=== PATIENT | male | born 1950 | race Caucasian/White ===

== ENCOUNTER → 2023-11-11 11:18 | Outpatient (BNVA) | payer MEDICARE, SELFPAY | PROVIDERS: Visit Provider Nurse Practitioner | DX: E11.9 Type 2 diabetes mellitus without complications (principal); E78.5 Hyperlipidemia, unspecified | CPT/HCPCS: 80053; 80061; 83036; 85025 ==

== ENCOUNTER → 2023-12-02 10:46 | Outpatient (BNVA) | payer OTHER, SELFPAY | PROVIDERS: PCP Nurse Practitioner; Visit Provider Nurse Practitioner | DX: M19.011 Primary osteoarthritis, right shoulder (principal) | CPT/HCPCS: 36415; 73030; 80053; 81001; 85025 ==

== ENCOUNTER → 2023-12-06 09:27 | Outpatient (BNVA) | payer OTHER, SELFPAY | PROVIDERS: PCP Nurse Practitioner; Visit Provider Family Medicine | DX: Z01.818 Encounter for other preprocedural examination (principal); R00.1 Bradycardia, unspecified | CPT/HCPCS: 93005 ==

== ENCOUNTER 2023-12-12 05:31 | Day surgery (SDC) | payer MEDICARE, SELFPAY ==
[2023-12-12] VITALS (9 sets, daily range): BP systolic 134–168; BP diastolic 63–91; PULSE 57–79; RESP 16–18; TEMP 36.2–36.4; O2SAT 91–99
[2023-12-12 06:15] LABS: Glucose Point of Care 143 mg/dL (70-110)
[2023-12-12] MEDS: sodium chloride 0.9% 1,000 ML 30 ML IV (06:30)
[2023-12-12] MEDS: acetaminophen 1,000 MG/100 ML PIGGYBACK 400 MG IV (06:32)
[2023-12-12] MEDS: gabapentin 300 mg Capsule PO (06:33)
[2023-12-12] MEDS: CELEcoxib 200 mg Capsule 400 MG PO (06:33)
--- NOTE | 2023-12-12 06:53 | P.ANESASSM_ITS ---
Pre-Anesthetic Assessment Height/Weight: Height 1.68 m Weight 83.915 kg Temp Pulse Resp BP Pulse Ox O2 Del Method 97.6 F 57 L 18 143/83 98 Room Air 12/12/23 05:58 12/12/23 05:58 12/12/23 05:58 12/12/23 05:58 12/12/23 05:58 12/12/23 05:58 Operation Date: 12/12/23 07:00 Proposed Procedures p Acromioplasty(Right) - Xenia Braun MD s Distal Clavicle Resection(Right) - Xenia Braun MD s Rotator Cuff Repair - Open(Right) - Xenia Braun MD Familial anesthetic complications: None Was Beta Brenden taken within 24 hours: N/A Was Clonidine taken within 24 hours: N/A Last intake: Intake Last Liquid Date 12/11/23 Last Liquid Time 22:00 Last Solid Date 12/11/23 Last Solid Time 22:00 Social No alcohol and No tobacco Exam alert, oriented x 3, clear to auscultation bilaterally and regular rate & rhythm Pulmonary Sleep Apnea CV/HEM Hypertension GI Gastroesophageal Reflux Disease Metabolic Diabetes Mellitus and Hyperlipidemia Anesthetic Plan ASA status: 3 Anesthesia: General and Regional (specify below) Risk of > 500 ml blood loss (7ml/kg in children): No Medications/Allergies Home Medications Medication Instructions Recorded Confirmed Last Taken Type calcium citrate 200 mg (950 mg) 200 mg PO DAILY 11/11/23 12/11/23 12/11/23 History tablet docosahexaenoic acid (dha)-epa 120 1 cap PO DAILY 11/11/23 12/11/23 12/11/23 History mg-180 mg capsule (Fish Oil) magnesium glycinate 100 mg PO QPM 11/11/23 12/11/23 12/10/23 History methylphenidate HCl 5 mg tablet 5 mg PO DAILY 11/11/23 12/11/23 12/11/23 History citalopram 10 mg tablet 10 mg PO DAILY #90 tabs 11/26/23 12/11/23 12/10/23 Rx lisinopril 5 mg tablet 5 mg PO DAILY #90 tabs 11/26/23 12/11/23 12/11/23 Rx metformin 1,000 mg tablet 1,000 mg PO BID #180 tabs 11/26/23 12/11/2324 Rx rosuvastatin 5 mg tablet 5 mg PO DAILY #90 tabs 11/26/23 12/11/23 12/10/23 Rx omeprazole 20 mg tablet,delayed 20 mg PO DAILY 12/06/23 12/12/23 12/12/23 Hist ory release Allergies Allergy/AdvReac Type Severity Reaction Status Date / Time Sulfa (Sulfonamide Allergy unknown Verified 12/06/23 09:54 Antibiotics) Current Medications Generic Name Dose Route Start Last Admin Trade Name Freq PRN Reason Stop Dose Admin Sodium Chloride 1,000 mls @ 30 mls/hr 12/12/23 06:00 12/12/23 06:30 Sodium Chloride 0.9% IV 12/13/23 05:59 30 mls/hr .Q24H MANAN Administration PFSH Anesthesia Medical History Rotator cuff tear, right Primary osteoarthritis, 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
--- NOTE | 2023-12-12 07:00 | P.HPUD_ITS ---
Surgery/Procedure H&P Update DATE OF PROCEDURE: December 12, 2023 DATE H&P PERFORMED: 12/06/23 H&P UPDATE INFORMATION: I have reviewed H&P completed within last 30 days, I have examined patient prior to procedure, No changes to prior documentation and H&P is in [facility] EMR on date indicated PLANNED PROCEDURE: Operation Date: 12/12/23 07:00 Proposed Procedures p Acromioplasty(Right) - Xenia Braun MD s Distal Clavicle Resection(Right) - Xenia Braun MD s Rotator Cuff Repair - Open(Right) - Xenia Braun MD Related Problem List Diagnoses (1) Rotator cuff tear, right: Qualifiers: Rotator cuff tear extent: complete Rotator cuff tear trauma status: tr aumatic Encounter type: initial encounter Qualified Code(s): S46.011A - Strain of muscle(s) and tendon(s) of the rotator cuff of right shoulder, initial encounter (2) Arthritis of right acromioclavicular joint: (3) Primary osteoarthritis, right shoulder:
--- NOTE | 2023-12-12 07:03 | W.PM.OPSUD ---
Surgery/Procedure H&P Update DATE OF PROCEDURE: December 12, 2023 DATE H&P PERFORMED: 12/06/23 PLANNED PROCEDURE: Operation Date: 12/12/23 07:00 Proposed Procedures p Acromioplasty(Right) - Xenia Braun MD s Distal Clavicle Resection(Right) - Xenia Braun MD s Rotator Cuff Repair - Open(Right) - Xenia Braun MD
[2023-12-12] MEDS: ceFAZolin 2,000 mg SDV 2000 MG IVP (07:08)
[2023-12-12] MEDS: ceFAZolin 1,000 mg SDV 1000 MG IRRIGATION (07:50)
--- NOTE | 2023-12-12 08:29 | PC.NURSE ---
pt was prepared for an interscaline block being performed by anesthesia. Pt was placed on 2L oxygen via nasal cannula, heart monitors and an oxygen sensor to monitor oxygen sats through the procedure. A time out was performed at 0645 by anesthesia identifying the patient by name and . The interscaline block was performed using 20cc 0.5% ropivicaine for patient pain control post surgery.
--- NOTE | 2023-12-12 09:13 | PM.OP ---
Operative Report Date of procedure: December 12, 2023 Pre-op diagnosis: Right shoulder impingement with large rotator cuff tear and acromioclavicular joint osteoarthritis Post-op diagnosis: Right shoulder large rotator cuff tear, biceps tendon atrophy, acromioclavicular joint osteoarthritis, and impingement Post-op findings: Near complete tear of the biceps tendon, large vertical rotator cuff tear with lack of humeral head coverage Procedure done: Right shoulder rotator cuff repair with biceps tenotomy and tenodesis, acromioplasty, and distal clavicle resection. Implants: None Specimens removed/disposition: Bone, disposed of Pathology: None sent Surgeon: Xenia Braun MD Agricultural Equipment Test Engineer: Trish Sheldon Agricultural Equipment Test Engineer: Who services were required for positioning, retraction, closure, and completion of the surgical procedure. Anesthesia: General (Intubated, ASA 3) Estimated blood loss (mL): 30 IV fluids (mL): 800 Urine output (mL): 0 (No Griffith) Complications: None Findings: Severe impingement with near complete tear of the biceps tendon and very large rotator cuff tear in a vertical fashion. Condition: stable Disposition: PACU (Then return to same-day surgery for discharge to home) Brief History: This 73-year-old gentleman presented with right shoulder pain. He describes that he had had shoulder pain for about a year, but also, he had an injury while he lived in [place] where he fell and landed on his right shoulder on concrete. The patient had performed physical therapy and had cortisone injections, but he was not having enough relief to continue with his activities of daily living. His date of injury was July 2023. After extended discussion, the patient wished to proceed with operative intervention. He understood preoperatively that the rotator cuff may not be repairable. He also understood that we would address the impingement as well as the acromioclavicular joint osteoarthritis. Risks and complications of surgery were discussed with him. Consents were signed and questions were answered. Procedure: The patient was brought to the operating theater and underwent general intubated, ASA 3 anesthesia. The patient was placed in a beachchair position and subsequently the right upper extremity was prepped and draped in the usual fashion utilizing DuraPrep. The arm was draped free. A surgical pause was performed prior to commencement of the surgical procedure. At the time of the surgical pause, we confirmed the site and side of surgery as well as administration of appropriate preoperative antibiotics Ancef 2 g. MRI was also reviewed at that time. Following the surgical pause, an incision was made at approximately the level of the distal clavicle extending across the anterolateral corner of the acromion and distally as necessary. Care was taken to avoid injury to the axillary nerve by limiting the distal extent of the incision. Dissection continued through skin and soft tissues using a scalpel. Hemostasis was obtained using electrocautery. Soft tissues were elevated off the acromion. An acromioplasty was then accomplished using a combination of a saw and a power rasp. With this, we were able to remove compression caused by the acromion. The rotator cuff was then evaluated to look for tears. There was full rotator cuff tear causing the entire superior humeral head to be uncovered. There was also significant thinning of the biceps tendon as it left the biceps groove and proceeded to the glenoid. There were only a few fibers of this tendon remaining. A biceps tenodesis was performed utilizing Ethibond to sew the biceps tendon in appropriate position in the biceps groove. The biceps tendon was then further evaluated, and after accomplishing the acromioplasty, we were able to see its attachment point onto the glenoid. Therefore, the tendon was resected at its point of attachment. This was flipped over onto the biceps groove and further suturing was accomplished incorporating the proximal portion of the tendon. The remaining portion that was not sutured in place was then removed. After the biceps tendon had been repaired with this form of biceps tenodesis, attention was directed further to the rotator cuff The rotator cuff tear was evaluated. The edges were freshened using a scalpel. The rotator cuff tear was quite large and vertical in position through the supraspinatus tendon. It was felt that this was not completely repairable, however, attempted repair was felt appropriate to allow coverage of the humeral head and perhaps lessen the patient's symptoms. This was a large vertical tear with separation anteriorly and posteriorly. Repair was accomplished using 0 Ethibond in an interrupted fashion. After the rotator cuff had been thus addressed, the shoulder was placed through further range of motion to assure there was no further evidence of rotator cuff tear. Finding none, shoulder was placed through range of motion as well to assess for impingement. It was felt that there was significant relief of impingement pressures across the shoulder joint. The acromioclavicular joint was exposed. A saw was then used to resect the distal clavicle without difficulty. The undersurface of the clavicle was palpated and was slightly further debrided. A power rasp was used to further smooth the area. When this was felt to be adequately resected, the wound was irrigated. Attention was then directed to closure. The wound was irrigated and closure was accomplished with 0 Vicryl in the capsular tissues overlying the acromioclavicular joint area as well as over the acromion and down into the deltoid muscle. 3-0 Monocryl was used to close the subcutaneous tissues followed by 4-0 Monocryl subcuticular closure. This was followed by Dermabond, Steri-Strips, and OpSite. The patient was placed in a slingshot style sling and was returned to the recovery room in satisfactory condition. The patient will be discharged to home to follow-up with me in the office as scheduled. There were no complications and no specimens. Related Problem List Diagnoses (1) Rotator cuff tear, right: (2) Arthritis of right acromioclavicular joint: (3) Impingement of right shoulder: (4) Primary osteoarthritis, right shoulder:
--- NOTE | 2023-12-12 10:05 | ANE.PACU2 ---
Inpatient post-anesthesia follow up: Airway intact: Yes Vital signs: Temperature 97.4 F Pulse Rate 71 Respiratory Rate 16 Blood Pressure 134/63 Pulse Oximetry 91 Oxygen Delivery Me thod Room Air Oxygen Flow Rate 6 Fraction of Inspir ed Oxygen Hydration adequate: Yes Nausea and vomiting: No Pain level: 1 Mental status: Baseline
== END 2023-12-12 10:05 | disposition home or self-care (01) ==
PROVIDERS: PCP Nurse Practitioner; Visit Provider Specialist
PROC: (CPT 23130; principal; 2023-12-12 07:00)
PROC: (CPT 23120; 2023-12-12 07:00)
PROC: (CPT 23120; 2023-12-12 07:00)
PROC: (CPT 23430; 2023-12-12 07:00)
DX: M75.101 Unspecified rotator cuff tear or rupture of right shoulder, not specified as traumatic (principal); M19.011 Primary osteoarthritis, right shoulder; M25.811 Other specified joint disorders, right shoulder; G47.30 Sleep apnea, unspecified; I10 Essential (primary) hypertension; E11.9 Type 2 diabetes mellitus without complications; E78.5 Hyperlipidemia, unspecified
CPT/HCPCS: 23120; 23412; 23430; 36416; 82962; J0131; J0330; J0690; J1100; J2405; J2704; J2795; J3010; J3490; J7030

== ENCOUNTER → 2023-12-25 07:57 | Outpatient (BNVA) | payer MEDICARE, SELFPAY | PROVIDERS: PCP Nurse Practitioner; Visit Provider Nurse Practitioner | DX: Z98.890 Other specified postprocedural states (principal); S46.011D Strain of muscle(s) and tendon(s) of the rotator cuff of right shoulder, subsequent encounter; M19.011 Primary osteoarthritis, right shoulder; X58.XXXD Exposure to other specified factors, subsequent encounter | CPT/HCPCS: 99024 ==

== ENCOUNTER → 2024-01-08 10:19 | Outpatient (BNVA) | payer MEDICARE, SELFPAY | PROVIDERS: PCP Nurse Practitioner; Visit Provider Nurse Practitioner | DX: Z98.890 Other specified postprocedural states (principal); M19.011 Primary osteoarthritis, right shoulder | CPT/HCPCS: 99024 ==

== ENCOUNTER → 2024-02-19 09:42 | Outpatient (BNVA) | payer MEDICARE, SELFPAY | PROVIDERS: PCP Nurse Practitioner; Visit Provider Nurse Practitioner | DX: M19.011 Primary osteoarthritis, right shoulder; S46.011D Strain of muscle(s) and tendon(s) of the rotator cuff of right shoulder, subsequent encounter; Z98.890 Other specified postprocedural states; X58.XXXD Exposure to other specified factors, subsequent encounter | CPT/HCPCS: 20610; 99024; J1100; J2795; J3301 ==

== ENCOUNTER → 2024-05-20 13:43 | Outpatient (BNVA) | payer MEDICARE, SELFPAY | PROVIDERS: PCP Nurse Practitioner; Visit Provider Nurse Practitioner | DX: M19.011 Primary osteoarthritis, right shoulder (principal); S46.011D Strain of muscle(s) and tendon(s) of the rotator cuff of right shoulder, subsequent encounter; Z98.890 Other specified postprocedural states; X58.XXXD Exposure to other specified factors, subsequent encounter | CPT/HCPCS: 20610; 99214; J1100; J2795; J3301; J9999 ==

== ENCOUNTER → 2024-06-16 14:03 | Outpatient (BNVA) | payer MEDICARE, SELFPAY | PROVIDERS: Family Provider Family Medicine; PCP Family Medicine; Referring Provider Family Medicine; Visit Provider Family Medicine | DX: E78.5 Hyperlipidemia, unspecified (principal); E11.9 Type 2 diabetes mellitus without complications; G47.419 Narcolepsy without cataplexy; I10 Essential (primary) hypertension | CPT/HCPCS: 80053; 80061; 83036; 85025 ==

== ENCOUNTER 2024-07-27 22:10 | Emergency (ER) | payer MEDICARE, SELFPAY ==
--- NOTE | 2024-07-27 22:18 | CTR_ITS ---
PROCEDURE INFORMATION: Exam: CT Head Without Contrast Exam date and time: 07/27/2024 10:27 PM Age: 73 years old Clinical indication: Stroke-like symptoms; Other: brain fog ; Additional info: Symptoms of acute stroke TECHNIQUE: Imaging protocol: Computed tomography of the head without contrast. Radiation optimization: All CT scans at this facility use at least one of these dose optimization techniques: automated exposure control; mA and/or kV adjustment per patient size (includes targeted exams where dose is matched to clinical indication); or iterative reconstruction. Other technique: STROKE PROTOCOL was implemented. COMPARISON: No relevant prior studies available. RADIATION DOSE METRICS: Total DLP (mGy-cm): 1074.3 FINDINGS: Brain: Periventricular white matter changes likely related to chronic ischemic small vessel disease. No intracranial mass, hemorrhage or recent infarct. Suspected old lacunar infarct in the left basal ganglia. Cerebral ventricles: No ventriculomegaly. Paranasal sinuses: Visualized sinuses are unremarkable. No fluid levels. Mastoid air cells: Visualized mastoid air cells are well aerated. Bones: Unremarkable. No acute fracture. Soft tissues: Unremarkable. CT/CT head thrombolytic [id number] IMPRESSION: No acute intracranial abnormality. ASSESSMENT: ASPECTS ([place] Stroke Program Early CT Score) is 10.
[2024-07-27 22:19] VITALS: BP 167/90; PULSE 106; RESP 18; TEMP 36.6; O2SAT 95
--- NOTE | 2024-07-27 22:19 | XRR_ITS ---
PROCEDURE INFORMATION: Exam: XR Chest Exam date and time: 07/27/2024 10:29 PM Age: 73 years old Clinical indication: Other: Weakness TECHNIQUE: Imaging protocol: Radiologic exam of the chest. Views: 1 view. COMPARISON: CR XR shoulder RT min 2V* [id number] 12/02/2023 10:50 AM FINDINGS: Lungs: Unremarkable. No consolidation. Pleural spaces: Unremarkable. No pleural effusion. No pneumothorax. Heart/Mediastinum: Unremarkable. No cardiomegaly. Bones/joints: Mild degenerative changes involve the spine. XR/XR chest 1V portable [id number] IMPRESSION: No acute abnormality.
[2024-07-27 22:22] LABS: Glucose Point of Care 215 mg/dL (70-110)
--- NOTE | 2024-07-27 22:23 | W.ED.AMS ---
HPI - Altered Mental Status General: Chief Complaint: Altered Mental Status Stated Complaint: Confused Time Seen by Provider: 07/27/24 22:15 History of Present Illness: 73-year-old male with a history of diabetes, hyperlipidemia and hypertension who presents the emergency room with neurologic complaints. He had gone outside and came back in and family noted him to be very confused and having amnesia. He kept asking the same questions over and over again. This is improved quite a bit now. He also now says that he fell when he got outside and hit his hip but did not hit his head. He is not on any blood thinners. His glucose was in the 200s at home which is a little high for him. Currently no focal motor deficits. He says he still feels a little bit confused but seems improved significantly according to family. Related Data Home Medications ?Medication ?Instructions ?Recorded ?Confirmed calcium citrate 200 mg PO DAILY 11/11/23 05/26/24 docosahexaenoic acid (dha)-epa 120 1 cap PO DAILY 11/11/23 05/26/24 mg-180 mg capsule (Fish Oil) magnesium glycinate 100 mg PO QPM 11/11/23 05/26/24 Previous Rx's ?Medication ?Instructions ?Recorded lisinopril 5 mg tablet 5 mg PO DAILY #90 tabs 11/26/23 metformin 1,000 mg tablet 1,000 mg PO BID #180 tabs 11/26/23 rosuvastatin 5 mg tablet 5 mg PO DAILY #90 tabs 11/26/23 azelastine 137 mcg (0.1 %) nasal 2 spray intranasal BID #30 mL 01/24/24 spray citalopram 20 mg tablet 20 mg PO DAILY 90 days #90 tabs 03/03/24 C-pap machine APAP 8-15 #1 ea 05/21/24 methylphenidate HCl 10 mg tablet 10 mg PO TID 30 days #90 tabs 07/16/24 Allergies Allergy/AdvReac Type Severity Reaction Status Date / Time Sulfa (Sulfonamide Allergy unknown Verified 07/27/24 22:22 Antibiotics) Review of Systems Narrative: Constitutional symptoms: Negative except as documented in HPI. Skin symptoms: Negative except as documented in HPI. Eye symptoms: Negative except as documented in HPI. ENMT symptoms: Negative except as documented in HPI. Respiratory symptoms: Negative except as documented in HPI. Cardiovascular symptoms: Negative except as documented in HPI. Gastrointestinal symptoms: Negative except as documented in HPI. Genitourinary symptoms: Negative except as documented in HPI. Musculoskeletal symptoms: Negative except as documented in HPI. Neurologic symptoms: Negative except as documented in HPI. Psychiatric symptoms: Negative except as documented in HPI. Endocrine symptoms: Negative except as documented in HPI. 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 Surgeon: Xenia Braun MD Family History Father Diabetes Sister Diabetes Mother Stroke Social History Smoking and tobacco/nicotine status: unknown if used tobacco/nicotine Physical Exam Narrative: General: Alert, no acute distress. Skin: Warm, dry. Head: Normocephalic, atraumatic. Neck: Supple, trachea midline. Eye: Extraocular movements are intact. Ears, nose, mouth and throat: mucosa moist. Cardiovascular: Regular, Normal peripheral perfusion. Respiratory: Lungs are clear to auscultation, respirations are non-labored, breath sounds are equal, Symmetrical chest wall expansion. Gastrointestinal: Soft, Nontender, Non distended Musculoskeletal: Normal ROM, no deformity. Neurological: Alert and oriented, No focal neurological deficit observed. No drift. No vision deficits. No slurred speech. No facial droop. Ambulating fine to the room. Psychiatric: Cooperative, appropriate mood & affect. Course Vital Signs: Vital signs: Vital Signs Temperature 97.8 F 07/27/24 22:19 Pulse Rate 106 H 07/27/24 22:19 Respiratory Rate 18 07/27/24 22:19 Blood Pressure 167/90 07/27/24 22:19 Pulse Oximetry 95 07/27/24 22:19 Oxygen Delivery Me thod Room Air 07/27/24 22:19 MDM - Altered Mental Status Medical Decision Making Medical decision making: Differential diagnosis for patient with focal neurologic deficit(s) includes but not limited to and based on the above HPI, review of systems and physical exam: ischemic stroke, hemorrhagic stroke and embolic stroke secondary to atrial fibrillation), TIA, Thomas's palsey, metabolic encephalopathy with previous stroke. Orders placed to evaluate differential diagnosis based on the above differential, HPI and physical exam NIH Stroke Scale/Score (NIHSS) from [employer] [facility] on 07/27/2024 All calculations should be rechecked by clinician prior to use RESULT SUMMARY: 0 points NIH Stroke Scale INPUTS: 1A: Level of consciousness ?> 0 = Alert; keenly responsive 1B: Ask month and age ?> 0 = Both questions right 1C: 'Blink eyes' & 'squeeze hands' ?> 0 = Performs both tasks 2: Horizontal extraocular movements ?> 0 = Normal 3: Visual riggs ?> 0 = No visual loss 4: Facial palsy ?> 0 = Normal symmetry 5A: Left arm motor drift ?> 0 = No drift for 10 seconds 5B: Right arm motor drift ?> 0 = No drift for 10 seconds 6A: Left leg motor drift ?> 0 = No drift for 5 seconds 6B: Right leg motor drift ?> 0 = No drift for 5 seconds 7: Limb Ataxia ?> 0 = No ataxia 8: Sensation ?> 0 = Normal; no sensory loss 9: Language/aphasia ?> 0 = Normal; no aphasia 10: Dysarthria ?> 0 = Normal 11: Extinction/inattention ?> 0 = No abnormality Consultation: I spoke with Dr. Jeff on-call for neurology. She feels like with this improving is likely global transient amnesia. She does recommend continued workup including a CT scan. CT head: No acute intracranial process. no intracranial hemorrhage, no evidence of infarct. no evidence of acute fracture.This was reviewed and interpreted by myself the ER physician. Chest x-ray: No acute process. No infiltrate. No pneumothorax. This was reviewed and interpreted by myself the emergency room physician. I also reviewed the radiology report. Lab Review: Laboratory results were reviewed and interpreted by myself the emergency room physician. No leukocytosis. No anemia. Renal function slightly elevated over his baseline and glucose is up at 224. No urinary tract infection. I reviewed the patient's medical record. Reexamination: Patient's symptoms have resolved completely. I discussed findings. High glucose and possible dehydration. Also concern for transient global amnesia as a diagnosis. Assessment and plan: Transient global amnesia Dehydration Hyperglycemia ? Normal saline bolus. Symptoms have resolved spontaneously. - Discharged home - Discussed plan with patient. Answered any questions. - Evaluation and treatment of this problem were appropriate in the emergency setting. Lab Data 07/27/24 22:22 07/27/24 22:[address] 07/27/24 22:18 IMPRESSION: No acute intracranial abnormality. ASSESSMENT: ASPECTS ([place] Stroke Program Early CT Score) is 10. ADDENDUM: 07/27/24 6730 COMMENT: THIS REPORT CONTAINS FINDINGS THAT MAY BE CRITICAL TO PATIENT CARE. The exam findings were verbally communicated by me to YANETH VEGA via telephone conference at 10:39 PM CDT on 07/27/2024. The findings were acknowledged and understood. Chest X-Ray 07/27/24 22:19 IMPRESSION: No acute abnormality. Laboratory Results WBC 9.05 10^3/uL (3.29-11.43) 07/27/24 22:22 RBC 5.34 10^6/uL (3.85-5.65) 07/27/24 22:22 Hgb 16.40 g/dL (11.27-16.99) 07/27/24 22:22 Hct 48.2 % (37-53) 07/27/24 22:22 MCV 90.3 fl (82-101) 07/27/24 22:22 MCH 30.7 pg (27-33) 07/27/24 22:22 MCHC 34.0 g/dL (30-55) 07/27/24 22:22 RDW 12.0 % (12.1-15.1) L 07/27/24 22:22 Plt Count 245 10^3/cmm (157-399) 07/27/24 22:22 MPV 9.3 fL (7.4-10.4) 07/27/24 22:22 Neut % (Auto) 77.5 % 07/27/24 22:22 Lymph % (Auto) 14.5 % 07/27/24 22:22 [place] % (Auto) 6.0 % 07/27/24 22:22 Eos % (Auto) 1.4 % 07/27/24 22:22 Baso % (Auto) 0.3 % 07/27/24 22:22 Neut # (Auto) 7.01 10^3/uL (1.8-7.7) 07/27/24 22:22 Lymph # (Auto) 1.3 10^3/uL (0.8-4.8) 07/27/24 22:22 [place] # (Auto) 0.5 10^3/uL (0.2-0.9) 07/27/24 22:22 Eos # (Auto) 0.1 10^3/uL (0.0-0.8) 07/27/24 22:22 Baso # (Auto) 0.0 10^3/uL (0.0-0.1) 07/27/24 22:22 Nucleated RBC % (auto) 0 % 07/27/24 22:22 Nucleated RBCs # 0.0 /100WBC 07/27/24 22:22 PT 12.70 SECONDS (12.1-14.9) 07/27/24 22:22 INR 0.89 (0.8-1.2) 07/27/24 22:22 APTT 26.1 SECONDS (23.9-36.7) 07/27/24 22:22 Sodium 136 mmol/L (136-145) 07/27/24 22:22 Potassium 4.3 mmol/L (3.5-5.1) 07/27/24 22:22 Chloride 98 mmol/L (98-107) 07/27/24 22:22 Carbon Dioxide 27 mmol/L (22-29) 07/27/24 22:22 Anion Gap 15.3 (5-19) 07/27/24 22:22 BUN 19 mg/dL (8-23) 07/27/24 22:22 Creatinine 1.2 mg/dL (0.7-1.2) 07/27/24 22:22 GFR Calculation Not Reportable 07/27/24 22:22 Glucose 224 mg/dL (65-115) H 07/27/24 22:22 POC Glucose 215 mg/dL (70-110) H 07/27/24 22:20 Calculated Osmolality 291 mOsm/kg (285-295) 07/27/24 22:22 Lactic Acid 1.3 mmol/L (0.5-2.2) 07/27/24 22:22 Calcium 10.3 mg/dL (8.5-10.5) 07/27/24 22:22 Total Bilirubin 0.6 mg/dL (0.15-1.2) 07/27/24 22:22 AST 19 U/L (0-40) 07/27/24 22:22 ALT 21 U/L (0-41) 07/27/24 22:22 Alkaline Phosphatase 133 U/L (40-130) H 07/27/24 22:22 Total Protein 7.7 g/dL (6.6-8.7) 07/27/24 22: Albumin 4.8 g/dL (3.5-5.2) 07/27/24 22: Globulin 2.9 g/dL (1.3-4.6) 07/27/24 22:22 Urine Color Yellow (Yellow) 07/28/24 00:01 Urine Appearance Clear (CLEAR) 07/28/24 00:01 Urine pH 5.5 (5-7) 07/28/24 00:01 Ur Specific [place] 1.027 (1.005-1.030) 07/28/24 00:01 Urine Protein Negative (Negative) 07/28/24 00:01 Urine Glucose (UA) 3+ (Normal) H 07/28/24 00:01 Urine Ketones 1+ (Negative) H 07/28/24 00:01 Urine Blood Negative (Negative) 07/28/24 00:01 Urine Nitrate Negative (Negative) 07/28/24 00: Urine Bilirubin Negative (Negative) 07/28/24 00: Urine Urobilinogen 0.2 mg/dL (Negative) 07/28/24 00:01 Ur Leukocyte Esterase Negative (Negative) 07/28/24 00:01 Urine RBC 0-2 /hpf (0-2) 07/28/24 00:01 Urine WBC 0-5 /hpf (0-5) 07/28/24 00:01 Ur Squamous Epith Cells 0-5 /hpf (0-5) 07/28/24 00:01 Amorphous Sediment Not Reportable 07/28/24 00:01 Urine Bacteria None seen /hpf (NONE) 07/28/24 00:01 Hyaline Casts 0-4 /lpf H 07/28/24 00:01 Urine Opiates Screen Negative ng/mL (Negative) 07/28/24 00:01 Ur Barbiturates Screen Negative ng/mL (Negative) 07/28/24 00:01 Ur Phencyclidine Scrn Negative ng/mL (Negative) 07/28/24 00:01 Ur Amphetamines Screen Negative ng/mL (Negative) 07/28/24 00:01 U Benzodiazepines Scrn Negative ng/mL (Negative) 07/28/24 00:01 Urine Cocaine Screen Negative ng/mL (Negative) 07/28/24 00:01 U Marijuana (THC) Screen Negative ng/mL (Negative) 07/28/24 00:01 All radiology interpretation(s) finalized by discharge Discharge Plan Discharge Patient Disposition: Home Clinical Impression: Transient global amnesia, Dehydration, Hyperglycemia Condition: Stable Prescriptions: No Action (DME) C-pap machine APAP 8-15 See Rx Instructions .Route .MEDSUPPLY Qty: 1 0RF Rx Instructions: provide mask and supplies as needed. calcium citrate 200 mg (950 mg) tablet 200 mg PO DAILY Fish Oil 120-180 mg capsule 1 cap PO DAILY magnesium glycinate 100 mg magnesium capsule 100 mg PO QPM citalopram 20 mg tablet 20 mg PO DAILY 90 Days Qty: 90 2RF lisinopril 5 mg tablet 5 mg PO DAILY Qty: 90 2RF metformin 1,000 mg tablet 1,000 mg PO BID Qty: 180 2RF rosuvastatin 5 mg tablet 5 mg PO DAILY Qty: 90 2RF azelastine 137 mcg (0.1 %) spray,non-aerosol 2 spray intranasal BID Qty: 30 6RF Rx Instructions: administer into each nostril methylphenidate HCl 10 mg tablet 10 mg PO TID 30 Days Qty: 90 0RF Discharge Orders: Discharge ED (Routine); Ordered 07/28/24 Ordered By: Yaneth Vega Referrals: Coretta Jeff MD [Physician, Neurology] Referral Note: Please call for possible earlier appointment with Dr. Jeff. If you like after this event and with the worsening tremors you should be seen as soon as possible. Gerald Marlow MD [Primary Care Provider, Family Practice] Patient Instructions: Altered Mental Status (ED), Opioid Safety, Pain Management Activity Restrictions/Additional Instructions: Thank you for choosing [facility] for your healthcare needs today. You have been screened and evaluated and felt safe for discharge. Health conditions do change or evolve sometimes and as such it is important that you follow up with your Primary Doctor to be re checked, 3-5 days is a general good time frame for follow up. You are always welcome to return to the ED for re assessment if your symptoms are worsening or you have new concerns Print Language: Estonian Coding Level of Care Code ED Chief Sales Officer for Cheikh Christian
[2024-07-27 22:28] LABS: Basophils % 0.3 %; Eosinophils # 0.1 10^3/uL (0.0-0.8); Eosinophils % 1.4 %; Hematocrit 48.2 % (37-53); Lymphocytes # 1.3 10^3/uL (0.8-4.8); Lymphocytes % 14.5 %; Mean Corpuscular Hemoglobin 30.7 pg (27-33); Mean Corpuscular Volume 90.3 fl (82-101); Mean Platelet Volume 9.3 fL (7.4-10.4); Monocytes # 0.5 10^3/uL (0.2-0.9); Neutrophils # 7.01 10^3/uL (1.8-7.7); Neutrophils % 77.5 %; Nucleated Red Blood Cells % 0 %; Platelet Count 245 10^3/cmm (157-399); Red Blood Count 5.34 10^6/uL (3.85-5.65); White Blood Count 9.05 10^3/uL (3.29-11.43)
--- NOTE | 2024-07-27 22:36 | PC.NURSE ---
pt ct complete at 4979
[2024-07-27 22:41] LABS: INR 0.89 (0.8-1.2); Partial Thromboplastin Time 26.1 SECONDS (23.9-36.7)
--- NOTE | 2024-07-27 22:43 | ECG_ITS ---
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
[2024-07-27 22:50] LABS: Alanine Aminotransferase 21 U/L (0-41); Albumin Level 4.8 g/dL (3.5-5.2); Alkaline Phosphatase 133 U/L (40-130); Anion Gap 15.3 (5-19); Aspartate Amino Transferase 19 U/L (0-40); Blood Urea Nitrogen 19 mg/dL (8-23); Calcium 10.3 mg/dL (8.5-10.5); Carbon Dioxide 27 mmol/L (22-29); Chloride 98 mmol/L (98-107); Creatinine Clr Calc Pharmacy 56.4174; Globulin 2.9 g/dL (1.3-4.6); Glucose 224 mg/dL (65-115); Lactic Sepsis W/Reflex 1.3 mmol/L (0.5-2.2); Osmolality Calculated 291 mOsm/kg (285-295); Potassium 4.3 mmol/L (3.5-5.1); Sodium 136 mmol/L (136-145); Total Bilirubin 0.6 mg/dL (0.15-1.2); Total Protein 7.7 g/dL (6.6-8.7)
[2024-07-27] MEDS: sodium chloride 0.9% 1,000 ML 999 ML IV (23:03)
[2024-07-28 00:37] LABS: Bilirubin Urine Negative (Negative); Blood Urine Negative (Negative); Glucose Urine UA 3+ (Normal); Ketones Urine 1+ (Negative); Leukocyte Esterase Urine Negative (Negative); Nitrate Urine Negative (Negative); Protein Urine Negative (Negative); Specific Gravity, Urine 1.027 (1.005-1.030); Urine Appearance Clear (CLEAR); Urine Color Yellow (Yellow); Urobilinogen Urine 0.2 mg/dL (Negative); pH Urine 5.5 (5-7)
[2024-07-28 00:43] LABS: Add Urine Microscopic? YES; Bacteria Urine None Seen /hpf; Hyaline Casts Urine 0-4 /lpf; RBC Urine 0-2 /hpf (0-2); Squamous Epithelial Cell Urine 0-5 /hpf (0-5); WBC Urine 0-5 /hpf (0-5)
[2024-07-28 00:44] LABS: Amphetamines Screen Urine Negative (Negative); Barbiturates Screen Urine Negative (Negative); Benzodiazepines Screen Urine Negative (Negative); Cocaine Screen Urine Negative (Negative); Opiate Screen Urine Negative (Negative); PCP Screen Urine Negative (Negative); THC Screen Urine Negative (Negative)
[2024-07-28 01:03] VITALS: BP 167/89; PULSE 94; RESP 16; O2SAT 98
== END 2024-07-28 01:05 | disposition home or self-care (01) ==
PROVIDERS: Emergency Provider Emergency Medicine; PCP Family Medicine
DX: G45.4 Transient global amnesia (principal); E11.65 Type 2 diabetes mellitus with hyperglycemia; E78.5 Hyperlipidemia, unspecified; I10 Essential (primary) hypertension; E86.0 Dehydration; Z79.899 Other long term (current) drug therapy; Z79.84 Long term (current) use of oral hypoglycemic drugs
CPT/HCPCS: 36415; 36416; 70450; 71045; 80053; 80306; 81001; 82962; 83605; 85025; 85610; 85730; 87040; 93005; 99285; J7030

== ENCOUNTER → 2024-08-21 10:21 | Outpatient (BNVA) | payer MEDICARE, SELFPAY | PROVIDERS: PCP Family Medicine; Visit Provider Nurse Practitioner | DX: S46.011D Strain of muscle(s) and tendon(s) of the rotator cuff of right shoulder, subsequent encounter (principal); M19.011 Primary osteoarthritis, right shoulder; Z98.890 Other specified postprocedural states; X58.XXXD Exposure to other specified factors, subsequent encounter | CPT/HCPCS: 99213 ==

== ENCOUNTER 2024-09-14 08:15 | Outpatient (CLI) | payer MEDICARE, SELFPAY ==
--- NOTE | 2024-09-14 09:15 | USCV_ITS ---
Marco Conte Age: 74 Gender: M : 1950 Exam Date: 09/14/2024 09:10 Ordering Phys: Gerald Marlow MD Technologist: MARY Exam Location: [facility] [place] Indication: TIA BP: 126 / 68 HR: 54 Rhythm: Sinus Technical Quality: Adequate MEASUREMENTS (Male / Female) Normal Values 2D ECHO LV Diastolic Diameter PLAX 4.8 cm 4.2 - 5.9 / 3.9 - 5.3 cm IVS Diastolic Thickness 0.8 cm 0.6 - 1.0 / 0.6 - 0.9 cm IVS Systolic Thickness 2.1 cm LVPW Diastolic Thickness 0.9 cm 0.6 - 1.0 / 0.6 - 0.9 cm LVPW Systolic Thickness 1.5 cm LVOT Diameter 2.1 cm LV Ejection Fraction 2D Teich 61.5 % LV Ejection Fraction MOD 4C 69.3 % LV Ejection Fraction MOD 2C 70.7 % LV Ejection Fraction 2C AL 71.2 % LA Diameter 3.6 cm RA Systolic Volume 4C AL 30.6 ml RA Systolic Volume 4C MOD 29.4 ml LA Sys Volume AL 49.9 cm cubed LA Sys Volume Index AL 25.1 cm cubed/m squared Aorta at Sinotubular Diameter 2.5 cm IVC Diameter 2.2 cm M-MODE LA Ao Ratio MM 1.3 AV Cusp Separation MM 1.1 cm DOPPLER AV Peak Velocity 173.0 cm/s AV Area Cont Eq vti 3.2 cm squared AV Area Cont Eq pk 2.8 cm squared MV Peak Velocity 97.0 cm/s MV Area PHT 4.2 cm squared Mitral E to A Ratio 0.6 TV Peak Velocity 176.0 cm/s TR Peak Velocity 238.0 cm/s TR Peak Gradient 22.7 mmHg TV Peak E Velocity 95.0 cm/s PV Peak Velocity 127.0 cm/s FINDINGS Left Ventricle Normal left ventricular size and systolic function, EF 70%.. No regional wall motion abnormalities. Grade I/IV diastolic dysfunction (abnormal relaxation filling pattern), normal to mildly elevated filling pressures. Right Ventricle The right ventricle is normal in size and function. Right Atrium The right atrium is normal in size. Left Atrium The left atrium is normal in size. Mitral Valve Mild mitral valve regurgitation. Aortic Valve Thickened aortic valve. Trace aortic valve regurgitation. Tricuspid Valve No gross abnormalities noted Pulmonic Valve No gross abnormalities noted Pericardium Normal pericardium without effusion. Aorta Normal aortic annulus size. IVC Not visualized CONCLUSIONS Normal left ventricular size and systolic function, EF 70%.. No regional wall motion abnormalities. Grade I/IV diastolic dysfunction (abnormal relaxation filling pattern), normal to mildly elevated filling pressures. Mild mitral valve regurgitation. Thickened aortic valve. Trace aortic valve regurgitation. There is no pericardial effusion. There are no intracardiac masses. No similar previous studies are available for comparison Dr Charles Brower MD [facility] (Electronically Signed) Final Date: 14 September 2024 15:28 S
--- NOTE | 2024-09-14 10:00 | USCV_ITS ---
Marco Conte Age: 74 Gender: M : 1950 Exam Date: 09/14/2024 08:47 Ordering Phys: Gerald Marlow MD Technologist: USR [place] [facility] [place]: stenosis Risk Factors: Previous Vascular Surgery: Right Brachial BP: / Left Brachial BP: / Right Left Velocity (cm/s) Spectral Plaque Velocity (cm/s) Spectral Plaque Syst/Diast Broadening Syst/Diast Broadening 86.90/ 17.50 Prox CCA 119.20/ 15.70 78.60/ 15.50 Mid CCA 76.50 / 11.30 70.80/ 13.60 Distal CCA 98.40 / 23.50 73.10/ 10.50 Prox ICA 44.40 / 9.50 66.90/ 17.90 Mid ICA 56.40 / 15.50 39.90/ 13.00 Distal ICA 35.90 / 8.30 85.20 ECA 93.30 1.00 ICA/CCA 0.60 Antegrade Vertebral Antegrade 32.60/ 7.20 cm/s 39.50/ 10.70 cm/s Tri Subclavian Tri 70.70 106.8 0 CONCLUSIONS Right ICA stenosis <50%. Moderate atheromatous plaque right carotid bulb/ICA. Left ICA stenosis <50%. Moderate atheromatous plaque left carotid bulb/ICA. Intimal thickening in the common carotid arteries and internal carotid arteries bilaterally. Normal antegrade Doppler flow noted in the right vertebral artery. Normal antegrade Doppler flow noted in the left vertebral artery. Tanner Soto MD (Electronically Signed) Final Date: 14 September 2024 10:42 S
== END 2024-09-14 08:16 | disposition home or self-care (01) ==
PROVIDERS: PCP Family Medicine; Visit Provider Family Medicine
DX: I65.23 Occlusion and stenosis of bilateral carotid arteries (principal); I34.0 Nonrheumatic mitral (valve) insufficiency
CPT/HCPCS: 93306; 93880

== ENCOUNTER → 2024-10-27 09:32 | Outpatient (BNVA) | payer MEDICARE, SELFPAY | PROVIDERS: PCP Nurse Practitioner; Referring Provider Nurse Practitioner; Visit Provider Specialist | DX: R41.3 Other amnesia (principal) | CPT/HCPCS: 36415; 82542; 83520; 96116; 99205 ==

== ENCOUNTER 2024-11-13 18:05 | Emergency (ER) | payer MEDICARE, SELFPAY ==
--- OUTSIDE RECORDS SUMMARY | 2024-08-27 12:00 | XMS_ITS ---
Author Organization [facility] Address [address] [place] [address] Care Team Providers Care Information Security Analyst Name Role Phone IVAN GUERRERO Unavailable [phone] REASON FOR VISIT 6 wks w/ fr/pvr/ipss Encounters Encounter Location Date Provider Diagnosis [facility] [address] [place] [address] 08/27/2024 IVAN GUERRERO Microscopic hematuri a R31.29 [...] Marco CONTE PDOB:[birth year] (74 yo M)Acc No.[id number]:08/27/2024 Progress Notes Patient: Marco RODRIGUEZ Provider: Duke GUERRERO MD :1950 A ge:74 Y S ex:Male Date:08/27/2024 Address:[facility] [address], [place], [id number] Subjective: * Chief Complaints: * 1 . [...] with no improvement. Previously saw Urology in [place]. CT on 06/11/24 thickened urinary bladder wall [...] History of bilateral inguinal hernia repair in [place] approximately 2 years ago. Cysto on 07/16/24 [...] signature of AUST IN MD YOLANDA on 11/13/2024 at 06:13 PM CDT Sign off status: Pending * Provider: Duke GUERRERO MD Date: 0 08/27/2024 Generated for Maureen wiley/Ana/Judiitting on: 0 11/13/2024 06:13 PM CDT
--- OUTSIDE RECORDS SUMMARY | 2024-11-13 18:13 | XMS_ITS | Patient Health Record ---
Author Organization [facility], [facility] Address [address] [place] [address] Care Team Providers Care Top Spotter Name Role Phone IVAN GARCIA Unavailable [phone] JAYFOZIA SEARS Unavailable [phone] Allergies Allergen (clinical drug ingredient) Drug/Non Drug Allergy documented on EMR Reaction Allergy Type Onset Date Status atorvastatin Atorvastatin Unknown Drug Allergy A ctive bupropion Bupropion Unknown Drug Allergy Active paroxetine Paroxetine Unknown Drug Allergy Activ e pramipexole Pramipexole Unknown Drug Allergy Act franchesca trazodone Trazodone Unknown Drug Allergy Active Results Component Value Reference Range Notes Urinalysis, Routine Reviewed date:06/11/2024 03:55:01 PM Interpretation: Performing Lab: Notes/Report: Urine-Color yellow Appearance cleart Glucose - Bilirubin - Ketones - Specific [place] 1.025 Occult Blood trace pH 6.0 Urine Protein - Urobilinogen,Semi-Qn - Nitrite, Urine - WBC Esterase - Urinalysis Gross Exam - CT Abdomen, Pelvis w/ + w/o Contrast--[id number] Reviewed date:07/06/2024 11:44:50 AM Interpretation: Performing Lab: Notes/Report: See Below For Report CT Abdomen, Pelvis w/ + w/o Contrast Read See Below For Report Creat Proc NC Reviewed date:07/06/2024 11:47:18 AM Interpretation: Performing Lab: Notes/Report: Creat .72 .57-1.17 MG/DL C-tfnkjm-x-benzoquinone imine (NAPQI) is a metabolite of acetaminophen, NAPQI concentrations of apparoximately 10 mg/L correlation to toxic levels of acetaminophen demonstrates a greater than or equil to 10% change in results. NAPQI concentrations greater than this may lead to falsely depressed results for patient samples. Use of this assay is not recommended for patients undergoing treatment with phenindione, due to the potential for falsely depressed results. Testing performed at: [address] [place] [address] CLIA ID [id number] BUN Proc NC Reviewed date:07/06/2024 11:47:18 AM Interpretation: Performing Lab: Notes/Report: BUN 14 7-21 MG/DL Testing perform ed at: [address] [place] [address] CLIA ID [id number] Urinalysis, Routine Reviewed date:07/16/2024 02:55:26 PM Interpretation: Performing Lab: Notes/Report: Urine-Color yellow Appearance clear Glucose - Bilirubin - Ketones - Specific [place] 1.020 Occult Blood - pH 6.0 Urine Protein - Urobilinogen,Semi-Qn - Nitrite, Urine - WBC Esterase - Reason For Referral No Information Medications Medication SIG (Take, Route, Frequency, Duration) Notes Start Date End Date Status Citalopram Hydrobromide 10 MG 1 tablet Orally Once a day 06/11/2024 Active Lisinopril 5 MG 2 tablets Orally Onc e a day Active metFORMIN HCl 1000 MG 1 tablet with a me al Orally Once a day Active Fish Oil 600 MG 1 capsule Orally Three times a day Not-Taking Calcium Citrate 250 MG 1 tablet Orally O nce a day 06/11/2024 Active Methylphenidate HCl 5 MG 1 tablet on an empty stomach Orally Twice a day Active Rosuvastatin Calcium 5 MG 1 tablet Orall y Once a day Active Alpha Lipoic Acid 200 MG 1 capsule Orall y Once a day Active Azelastine HCl 0.15 % 2 sprays (1 spray in each nostril) Nasally Twice a day Active Problems Problem Type SNOMED Code ICD Code Onset Dates Problem Status W/U Status Risk Notes Problem Lower urinary tract symptoms due to benign prostatic hypertrophy (76062669717396) Benign prostatic hyperplasia with lower urinary tract symptoms (N40.1) Active confirmed Problem Benign prostatic hyperplasia (703175112) BPH (benign prostatic hyperplasia) (N40.0) Active confirmed Problem Family history of bladder cancer (951098577) Family history of bladder cancer (Z80.52) Active confirmed Problem Urgent desire to urinate (73450555) Urinary urgency (R39.15) Active confirmed Problem Microscopic hematuria (921954714) Microscopic hematuria (R31.29) Active confirmed Vital Signs Height-cm 167.64 cm 07/16/2024 Weight-kg 86.18 kg 07/16/2024 Height 66 in 07/16/2024 Weight 190 lbs 07/16/2024 BMI 30.66 kg/m2 07/16/2024 Procedures Procedure Date Ordered Date Performed Result Body Sit e Bladder Scan 06/11/2024 06/11/2024 PVR 0ML Encounters Encounter Location Date Provider Diagnosis [facility] [address] [place] [address] 08/27/2024 IVAN GARCIA Microscopic hematuri a R31.29 ; Benign prostatic hyperplasia with lower urinary tract symptoms N40.1 ; Family history of bladder cancer Z80.52 ; Urinary urgency R39.15 and Bilateral inguinal hernia, without obstruction or gangrene, not specified as recurrent K40.20 [facility] [address] [place] [address] 06/11/2024 IVAN GARCIA BPH (benign prostati c hyperplasia) N40.0 ; Microscopic hematuria R31.29 ; Family history of bladder cancer Z80.52 and Urinary urgency R39.15 [facility] [address] [place] [address] 07/16/2024 IVAN GARCIA Microscopic hematuri a R31.29 ; Benign prostatic hyperplasia with lower urinary tract symptoms N40.1 ; Family history of bladder cancer Z80.52 and Urinary urgency R39.15 [facility] [address] [place] [address] 11/21/2023 FOZIA JAY Assessments Encounter Date Diagnosis (ICD Code) Assessment Notes Treatment Notes Treatment Clinical Notes Section Notes 06/11/2024 Microscopic hematuria (ICD-10 - R31.29) 73 y/o M with BPH/LUTS, OAB. Microscopic hematuria. Family h/o of bladder cancer in father. IPSS 18. QoL 5. PVR 0. We discussed the indications and rationale for a hematuria workup including the possibility of malignancy causing hematuria. In terms of the workup specifically, we discussed the need for evaluation of the upper urinary tracts with radiologic imaging and the lower urinary tract with cystoscopy. We will set up the CT scan w/ and w/o contrast and delayed imaging per hematuria protocol. We will also schedule for next available cystoscopy. Plan: obtain CT abd/pelvis -RTC for next available Cystoscopy and review CT report Jovita Short Scribe, am scribing for, and in the presence of, Dr. Garcia. I, Dr. Ivan Garcia, personally performed the services prescribed in this documentation, as scribed by Jovita Keller, in my presence, and it is both accurate and complete. 07/16/2024 Benign prostatic hyperplasia with lower urinary tract symptoms (ICD-10 - N40.1) N40.1 - Enlarged prostate with lower urinary tract symptoms N32.89 - Other specified disorders of bladder N28.1 - Cyst of kidney, acquired K40.90 - Bilateral inguinal hernia, without obstruction or gangrene, not specified as recurrent 74-year-old male with medication-refr actory BPH presenting with significant LUTS, particularly continuous urinary dribbling. Cystoscopy reveals trilobar prostatic enlargement with median lobe involvement and evidence of chronic bladder outlet obstruction. Incidental findings of bilateral renal cysts and recurrent inguinal hernias. 06/11/2024 BPH (benign prostatic hyperplasia) (ICD-10 - N40.0) 73 y/o M with BPH/LUTS, OAB. Microscopic hematuria. Family h/o of bladder cancer in father. IPSS 18. QoL 5. PVR 0. We discussed the indications and rationale for a hematuria workup including the possibility of malignancy causing hematuria. In terms of the workup specifically, we discussed the need for evaluation of the upper urinary tracts with radiologic imaging and the lower urinary tract with cystoscopy. We will set up the CT scan w/ and w/o contrast and delayed imaging per hematuria protocol. We will also schedule for next available cystoscopy. Plan: obtain CT abd/pelvis -RTC for next available Cystoscopy and review CT report Jovita Short Scribe, am scribing for, and in the presence of, Dr. Garcia. Deja, Dr. Ivan Garcia, personally performed the services prescribed in this documentation, as scribed by Jovita Keller, in my presence, and it is both accurate and complete. 07/16/2024 Microscopic hematuria (ICD-10 - R31.29) N40.1 - Enlarged prostate with lower urinary tract symptoms N32.89 - Other specified disorders of bladder N28.1 - Cyst of kidney, acquired K40.90 - Bilateral inguinal hernia, without obstruction or gangrene, not specified as recurrent 74-year-old male with medication-refr actory BPH presenting with significant LUTS, particularly continuous urinary dribbling. Cystoscopy reveals trilobar prostatic enlargement with median lobe involvement and evidence of chronic bladder outlet obstruction. Incidental findings of bilateral renal cysts and recurrent inguinal hernias. 08/27/2024 Microscopic hematuria (ICD-10 - R31.29) 74-year-old male with medication-refr actory BPH presenting with significant LUTS, particularly continuous urinary dribbling. 08/27/2024 Benign prostatic hyperplasia with lower urinary tract symptoms (ICD-10 - N40.1) 74-year-old male with medication-refr actory BPH presenting with significant LUTS, particularly continuous urinary dribbling. 08/27/2024 Family history of bladder cancer (ICD-10 - Z80.52) 74-year-old male with medication-refr actory BPH presenting with significant LUTS, particularly continuous urinary dribbling. 06/11/2024 Family history of bladder cancer (ICD-10 - Z80.52) 73 y/o M with BPH/LUTS, OAB. Microscopic hematuria. Family h/o of bladder cancer in father. IPSS 18. QoL 5. PVR 0. We discussed the indications and rationale for a hematuria workup including the possibility of malignancy causing hematuria. In terms of the workup specifically, we discussed the need for evaluation of the upper urinary tracts with radiologic imaging and the lower urinary tract with cystoscopy. We will set up the CT scan w/ and w/o contrast and delayed imaging per hematuria protocol. We will also schedule for next available cystoscopy. Plan: obtain CT abd/pelvis -RTC for next available Cystoscopy and review CT report Jovita Short Scribe, am scribing for, and in the presence of, Dr. Garcia. Deja, Dr. Ivan Garcia, personally performed the services prescribed in this documentation, as scribed by Jovita Keller, in my presence, and it is both accurate and complete. 07/16/2024 Family history of bladder cancer (ICD-10 - Z80.52) N40.1 - Enlarged prostate with lower urinary tract symptoms N32.89 - Other specified disorders of bladder N28.1 - Cyst of kidney, acquired K40.90 - Bilateral inguinal hernia, without obstruction or gangrene, not specified as recurrent 74-year-old male with medication-refr actory BPH presenting with significant LUTS, particularly continuous urinary dribbling. Cystoscopy reveals trilobar prostatic enlargement with median lobe involvement and evidence of chronic bladder outlet obstruction. Incidental findings of bilateral renal cysts and recurrent inguinal hernias. 07/16/2024 Urinary urgency (ICD-10 - R39.15) N40.1 - Enlarged prostate with lower urinary tract symptoms N32.89 - Other specified disorders of bladder N28.1 - Cyst of kidney, acquired K40.90 - Bilateral inguinal hernia, without obstruction or gangrene, not specified as recurrent 74-year-old male with medication-refr actory BPH presenting with significant LUTS, particularly continuous urinary dribbling. Cystoscopy reveals trilobar prostatic enlargement with median lobe involvement and evidence of chronic bladder outlet obstruction. Incidental findings of bilateral renal cysts and recurrent inguinal hernias. 06/11/2024 Urinary urgency (ICD-10 - R39.15) 73 y/o M with BPH/LUTS, OAB. Microscopic hematuria. Family h/o of bladder cancer in father. IPSS 18. QoL 5. PVR 0. We discussed the indications and rationale for a hematuria workup including the possibility of malignancy causing hematuria. In terms of the workup specifically, we discussed the need for evaluation of the upper urinary tracts with radiologic imaging and the lower urinary tract with cystoscopy. We will set up the CT scan w/ and w/o contrast and delayed imaging per hematuria protocol. We will also schedule for next available cystoscopy. Plan: obtain CT abd/pelvis -RTC for next available Cystoscopy and review CT report Jovita Short Scribe, am scribing for, and in the presence of, Dr. Garcia. Deja, Dr. Ivan Garcia, personally performed the services prescribed in this documentation, as scribed by Jovita Keller, in my presence, and it is both accurate and complete. 08/27/2024 Urinary urgency (ICD-10 - R39.15) 74-year-old male with medication-refr actory BPH presenting with significant LUTS, particularly continuous urinary dribbling. 08/27/2024 Bilateral inguinal hernia, without obstruction or gangrene, not specified as recurrent (ICD-10 - K40.20) 74-year-old male with medication-refr actory BPH presenting with significant LUTS, particularly continuous urinary dribbling. 07/16/2024 Other #BPH/LUTS - Discussed surgical options for prostate obstruction - Patient provided with informational pamphlet regarding surgical interventions - Follow up in 6 weeks to discuss treatment preferences and formulate surgical plan - Recommended Kegel exercises for stress incontinence #Renal Cysts - Conservative management as asymptomatic - No intervention needed unless becomes symptomatic #Recurrent Inguinal Hernias - Recommend follow-up with general surgery for evaluation #Procedure - Prophylactic antibiotics prescribed post-cystoscopy - No immediate complications from procedure You had a cystoscopy (camera examination of your bladder) today that showed your enlarged prostate is blocking your bladder. 1. Take all prescribed antibiotics as directed to prevent infection. 2. Practice Kegel exercises to help with urinary dribbling: - Pretend you are trying to stop your urine stream - Hold for 3 seconds, then relax - Repeat 10 times, 3 times per day 3. Review the surgical options pamphlet provided 4. Schedule an appointment with your general surgeon to check your hernias 5. Return to clinic in 6 weeks to discuss surgical options for your prostate Seek immediate medical attention if you develop fever, severe pain, or inability to urinate. N40.1 - Enlarged prostate with lower urinary tract symptoms N32.89 - Other specified disorders of bladder N28.1 - Cyst of kidney, acquired K40.90 - Bilateral inguinal hernia, without obstruction or gangrene, not specified as recurrent 74-year-old male with medication-refr actory BPH presenting with significant LUTS, particularly continuous urinary dribbling. Cystoscopy reveals trilobar prostatic enlargement with median lobe involvement and evidence of chronic bladder outlet obstruction. Incidental findings of bilateral renal cysts and recurrent inguinal hernias. Plan Of Treatment Pending Test Test Name Order Date Blood Urea Nitrogen (BUN) 06/11/2024 Creatinine Serum 06/11/2024 Insurance Providers Payer Name Payer Address Payer Phone Subscriber Number Group Number Insured Name Patient Relationship to Insured Coverage Start Date Coverage End Date [employer] Medicare Replacement [address] [address] [place], [place] [id number] Marco Conte Self - patient is the insured Medical (General) History Medical History History ICD Code diabetes dyslipidemia osteoarthritis depression high blood pressure ED Incontinence nocturia Surgical History Surgery Date(Month/Year) nasal surgery appenectomy R & L total knee R & L hernias left cataract removal 07/14/2024 Hospitalization History Reason Date(Month/Year) see surgical hist.
--- OUTSIDE RECORDS SUMMARY | 2024-11-13 18:14 | XMS_ITS | Clinical Summary ---
Author Organization [facility] Address [address] [facility] Attn: Epic Prelude ADT LIV [place] [address] Care Team Providers Care Principal Systems Architect Name Role Phone Unavailable Primary Care Provider Unavailabl e Encounters Date Type Department Care Team Description 11/03/2024 External Device Data [facility] Provider, Abstract 10/20/2024 External Device Data [facility] Provider, Abstract 08/19/2024 External Device Data [facility] Provider, Abstract 2024 External Device Data [facility] Provider, Abstract 2024 External Device Data [facility] Provider, Abstract 08/17/2024 Orders Only [facility] [address] [place] [address] Provider, Abstract 08/13/2024 Telephone [facility] Primary Care [facility] [address] [place] [address] Provider, Abstract Medical Records (Requested A1C lab results from external provider for continuity of care/insurance quality measures- need results uploaded and resulted in chart.) from Last 3 Months Social History Tobacco Use Types Packs/Day Years Used Date Smoking Tobacco: Never Assessed Sex and Gender Information Value Date Recorded Sex Assigned at Not on file Legal Sex Male 12:37 PM CDT Gender Identity Not on file Sexual Orientation Not on file Plan of Treatment Health Maintenance Due Date Last Done Comments DTAP/TDAP/TD VACCINES (1 - Tdap) 1969 COLORECTAL SCREENING 08/19/1995 Colorectal Cancer Screening 08/19/1995 FIT-DNA Q 3 years 08/19/1995 FIT/FOBT Q 1 year 08/19/1995 Flex Sig/CT Colonography Q 5 years 08/19/1995 PNEUMOCOCCAL VACCINE 50+ YEARS (1 of 1 - PCV) 08/19/19 ZOSTER VACCINE (1 of 2) 2000 INFLUENZA VACCINE (#1) 2024 RSV VACCINE (60+ or ) (1 - 1-dose 75+ series) 2025
[2024-11-13 18:47] LABS: Hematocrit 38.4 % (37-53); Hemoglobin 13.50 g/dL (11.27-16.99); Mean Corpuscular HGB Conc 35.2 g/dL (30-55); Mean Corpuscular Hemoglobin 31.4 pg (27-33); Mean Corpuscular Volume 89.3 fl (82-101); Nucleated Red Blood Cells % 0 %; Platelet Count 225 10^3/cmm (157-399); Red Blood Count 4.30 10^6/uL (3.85-5.65); White Blood Count 8.15 10^3/uL (3.29-11.43)
[2024-11-13 18:51] VITALS: BP 131/76; PULSE 81; RESP 16; TEMP 36.9; O2SAT 95; BMI 29.0
[2024-11-13 19:07] LABS: Alanine Aminotransferase 23 U/L (0-41); Albumin Level 4.2 g/dL (3.5-5.2); Alkaline Phosphatase 111 U/L (40-130); Anion Gap 16.0 (5-19); Aspartate Amino Transferase 19 U/L (0-40); Blood Urea Nitrogen 9 mg/dL (8-23); Calcium 9.2 mg/dL (8.5-10.5); Carbon Dioxide 26 mmol/L (22-29); Chloride 102 mmol/L (98-107); Creatinine Clr Calc Pharmacy 81.2840; Globulin 2.6 g/dL (1.3-4.6); Glucose 171 mg/dL (65-115); Osmolality Calculated 293 mOsm/kg (285-295); Potassium 4.0 mmol/L (3.5-5.1); Sodium 140 mmol/L (136-145); Total Protein 6.8 g/dL (6.6-8.7)
[2024-11-13 20:44] LABS: Glucose Urine UA 1+ (Normal); Nitrate Urine Positive (Negative); Specific Gravity, Urine 1.022 (1.005-1.030)
[2024-11-13 20:49] LABS: Add Urine Microscopic? YES
[2024-11-13 21:08] LABS: UA Slide Review UA Slide Review Perf
--- NOTE | 2024-11-13 22:40 | W.ED.MALEGU ---
HPI - Male Genitourinary General: Chief complaint: Urogenital-Male Stated complaint: Blood in catheter Time Seen by Provider: 11/13/24 19:47 History of Present Illness: 74-year-old male patient with a history of a TURP at [facility] in [place] 2 days ago. He had an increase in the amount of blood in his urine today. It is relatively painless. He says that he ran a temperature of 99 yesterday, but none today. He has been on antibiotics since his surgery. No other problems. Related Data Home Medications ?Medication ?Instructions ?Recorded ?Confirmed calcium citrate 200 mg PO DAILY 11/11/23 11/03/24 magnesium glycinate 100 mg PO QPM 11/11/23 11/03/24 Previous Rx's ?Medication ?Instructions ?Recorded azelastine 137 mcg (0.1 %) nasal 2 spray intranasal BID #30 mL 01/24/24 spray C-pap machine APAP 8-15 #1 ea 05/21/24 aspirin 81 mg tablet,delayed 81 mg PO DAILY #30 tabs 08/04/24 release (Adult Aspirin Regimen) citalopram 20 mg tablet 20 mg PO DAILY 90 days #90 tabs 08/27/24 lisinopril 5 mg tablet See Rx Instructions .Route 08/28/24 .COMPLEX #90 tabs metformin 1,000 mg tablet See Rx Instructions .Route 08/28/24 .COMPLEX #180 tabs rosuvastatin 5 mg tablet See Rx Instructions .Route 08/28/24 .COMPLEX #90 tabs metronidazole 0.75 % topical cream 1 applic topical BID #45 grams 09/08/24 (MetroCream) propranolol 10 mg tablet 10 mg PO BID #60 tabs 09/08/24 methylphenidate HCl 10 mg tablet 10 mg PO TID 30 days #90 tabs 10/07/24 triamcinolone acetonide 0.1 % 1 applic topical BID 7 days #80 11/03/24 topical cream grams galantamine 4 mg tablet 4 mg PO BID #60 tabs 11/04/24 cefdinir 300 mg capsule 300 mg PO BID 10 days #20 caps 11/13/24 Allergies Allergy/AdvReac Type Severity Reaction Status Date / Time atorvastatin Allergy Unknown Verified 11/13/24 18:56 bupropion Allergy Unknown Verified 11/13/24 18:57 paroxetine Allergy Unknown Verified 11/13/24 18:56 pramipexole Allergy Unknown Verified 11/13/24 18:57 Sulfa (Sulfonamide Allergy unknown Verified 11/03/24 13:31 Antibiotics) trazodone Allergy Unknown Verified 11/13/24 18:57 PFSH ED PFSH: Medical History JORI on CPAP Hypertension Rotator cuff tear, right Primary osteoarthritis, 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 Surgeon: Xenia Braun MD Family History Father Diabetes Sister Diabetes Mother Stroke Social History Smoking and tobacco/nicotine status: former use of tobacco/nicotine (quit 1977) Physical Exam Const: COMMON NORMALS: no acute distress GENERAL APPEARANCE: cooperative; not ill appearing and not frail appearing HENMT: COMMON NORMALS: normocephalic, atraumatic and Normal external nose present HEAD & SCALP: normocephalic and atraumatic FACE & SINUS: normal facial exam and face symmetric NOSE: Normal external nose present Eye: COMMON NORMALS: Equal, round and reactive pupils present and EOMs intact bilaterally PUPIL: Yes Equal, round and reactive pupils present Neck/C-Spine: GENERAL: Yes trachea midline Chest: CHEST: Yes Symmetrical chest wall rise Resp: COMMON NORMALS: normal respiratory effort, No retractions, No use of accessory muscles and clear to auscultation bilaterally AUSCULTATION: clear to auscultation bilaterally Cardio: COMMON NORMALS: regular rate and regular rhythm RATE: regular rate RHYTHM: regular rhythm GI: COMMON NORMALS: Normal to inspection, nondistended, normoactive bowel sounds present : OTHER: Griffith catheter in place. Dark urine apparent, with hematuria. No clots. Extremity: COMMON NORMALS: no pedal edema Neuro: NOLVIA COMA SCALE: document GCS findings Nolvia coma scale eye opening: Spontaneous [place] coma scale verbal response: Orientated [place] coma scale motor response: Obey commands Nolvia coma scale total score: 15 SENSORY EXAM: Yes extremities (intact) Psych: COMMON NORMALS: speech normal SPEECH: Yes normal speech Skin: COMMON NORMALS: no rashes or lesions noted GENERAL SKIN EXAM: no rashes or lesions noted Course Vital Signs: Vital signs: Vital Signs Temperature 98.4 F 11/13/24 18:51 Pulse Rate 77 11/13/24 22:43 Respiratory Rate 16 11/13/24 22:43 Blood Pressure 138/76 11/13/24 22:43 Pulse Oximetry 94 11/13/24 22:43 Oxygen Delivery Me thod Room Air 11/13/24 18:51 MDM - Male Medical Decision Making Griffith was flushed by nursing staff, was significant clearing of the urine. Patient is afebrile, vitals are stable. White blood cell count is normal. Laboratory including creatinine are normal as well. Urinalysis however shows urinary tract infection with hematuria. Antibiotic will be switched from ciprofloxacin to cefdinir. He otherwise feels well. Bedside ultrasound reveals a decompressed bladder, with Griffith in place. Lab Data 11/13/24 18:34 11/13/24 18:34 Laboratory Results WBC 8.15 10^3/uL (3.29-11.43) 11/13/24 18:34 RBC 4.30 10^6/uL (3.85-5.65) 11/13/24 18:34 Hgb 13.50 g/dL (11.27-16.99) 11/13/24 18:34 Hct 38.4 % (37-53) 11/13/24 18:34 MCV 89.3 fl (82-101) 11/13/24 18:34 MCH 31.4 pg (27-33) 11/13/24 18:34 MCHC 35.2 g/dL (30-55) 11/13/24 18:34 RDW 12.5 % (12.1-15.1) 11/13/24 18:34 Plt Count 225 10^3/cmm (157-399) 11/13/24 18:34 MPV 9.3 fL (7.4-10.4) 11/13/24 18:34 Neut % (Auto) 65.1 % 11/13/24 18:34 Lymph % (Auto) 19.4 % 11/13/24 18:34 [place] % (Auto) 8.8 % 11/13/24 18:34 Eos % (Auto) 5.9 % 11/13/24 18:34 Baso % (Auto) 0.4 % 11/13/24 18:34 Neut # (Auto) 5.31 10^3/uL (1.8-7.7) 11/13/24 18:34 Lymph # (Auto) 1.6 10^3/uL (0.8-4.8) 11/13/24 18:34 [place] # (Auto) 0.7 10^3/uL (0.2-0.9) 11/13/24 18:34 Eos # (Auto) 0.5 10^3/uL (0.0-0.8) 11/13/24 18:34 Baso # (Auto) 0.0 10^3/uL (0.0-0.1) 11/13/24 18:34 Nucleated RBC % (auto) 0 % 11/13/24 18:34 Nucleated RBCs # 0.0 /100WBC 11/13/24 18:34 Sodium 140 mmol/L (136-145) 11/13/24 18:34 Potassium 4.0 mmol/L (3.5-5.1) 11/13/24 18:34 Chloride 102 mmol/L (98-107) 11/13/24 18:34 Carbon Dioxide 26 mmol/L (22-29) 11/13/24 18:34 Anion Gap 16.0 (5-19) 11/13/24 18:34 BUN 9 mg/dL (8-23) 11/13/24 18:34 Creatinine 0.7 mg/dL (0.7-1.2) 11/13/24 18:34 GFR Calculation Not Reportable 11/13/24 18:34 Glucose 171 mg/dL (65-115) H 11/13/24 18:34 Calculated Osmolality 293 mOsm/kg (285-295) 11/13/24 18:34 Calcium 9.2 mg/dL (8.5-10.5) 11/13/24 18:34 Total Bilirubin 0.5 mg/dL (0.15-1.2) 11/13/24 18:34 AST 19 U/L (0-40) 11/13/24 18:34 ALT 23 U/L (0-41) 11/13/24 18:34 Alkaline Phosphatase 111 U/L (40-130) 11/13/24 18:34 Total Protein 6.8 g/dL (6.6-8.7) 11/13/24 18:34 Albumin 4.2 g/dL (3.5-5.2) 11/13/24 18:34 Globulin 2.6 g/dL (1.3-4.6) 11/13/24 18:34 Urine Color Red (Yellow) A 11/13/24 20: Urine Appearance Turbid (CLEAR) A 11/13/24 20: Urine pH 5.0 (5-7) 11/13/24 20: Ur Specific [place] 1.022 (1.005-1.030) 11/13/24 20: Urine Protein 2+ (Negative) A 11/13/24 20: Urine Glucose (UA) 1+ (Normal) H 11/13/24 20: Urine Ketones Negative (Negative) 11/13/24 20: Urine Blood 2+ (Negative) A 11/13/24 20: Urine Nitrate Positive (Negative) A 11/13/24 20: Urine Bilirubin 1+ (Negative) H 11/13/24 20: Urine Urobilinogen 0.2 mg/dL (Negative) 11/13/24 20: Ur Leukocyte Esterase 2+ (Negative) A 11/13/24 20: Urine RBC >100 /hpf (0-2) H 11/13/24 20:31 Urine WBC >100 /hpf (0-5) H 11/13/24 20:31 Ur Squamous Epith Cells 0-5 /hpf (0-5) 11/13/24 20: Amorphous Sediment Not Reportable 11/13/24 20: Urine Bacteria None seen /hpf (NONE) 11/13/24 20: Hyaline Casts 11.77 /lpf 11/13/24 20:31 No radiology studies performed this visit Discharge Plan Discharge Patient Disposition: Home Clinical Impression: Urinary tract infection Condition: Stable Prescriptions: New cefdinir 300 mg capsule 300 mg PO BID 10 Days Qty: 20 0RF No Action citalopram 20 mg tablet 20 mg PO DAILY 90 Days Qty: 90 2RF aspirin [Adult Aspirin Regimen] 81 mg tablet,delayed release (DR/EC) 81 mg PO DAILY Qty: 30 0RF propranolol 10 mg tablet 10 mg PO BID Qty: 60 11RF metronidazole [MetroCream] 0.75 % cream 1 applic topical BID Qty: 45 11RF (DME) C-pap machine APAP 8-15 See Rx Instructions .Route .MEDSUPPLY Qty: 1 0RF Rx Instructions: provide mask and supplies as needed. calcium citrate 200 mg (950 mg) tablet 200 mg PO DAILY magnesium glycinate 100 mg magnesium capsule 100 mg PO QPM triamcinolone acetonide 0.1 % cream 1 applic topical BID 7 Days Qty: 80 0RF azelastine 137 mcg (0.1 %) spray,non-aerosol 2 spray intranasal BID Qty: 30 6RF Rx Instructions: administer into each nostril lisinopril 5 mg tablet See Rx Instructions .ROUTE .COMPLEX Qty: 90 3RF Dose Instruction: Take 1 tablet by mouth once daily Rx Instructions: Take 1 tablet by mouth once daily metformin 1,000 mg tablet See Rx Instructions .ROUTE .COMPLEX Qty: 180 3RF Dose Instruction: Take 1 tablet by mouth twice daily Rx Instructions: Take 1 tablet by mouth twice daily rosuvastatin 5 mg tablet See Rx Instructions .ROUTE .COMPLEX Qty: 90 3RF Dose Instruction: TAKE 1 TABLET BY MOUTH ONCE DAILY Rx Instructions: TAKE 1 TABLET BY MOUTH ONCE DAILY methylphenidate HCl 10 mg tablet 10 mg PO TID 30 Days Qty: 90 0RF galantamine 4 mg tablet 4 mg PO BID Qty: 60 3RF Rx Instructions: administer with AM and PM meals Discharge Orders: Discharge ED (Routine); Ordered 11/13/24 Ordered By: Tevin Cassidy Referrals: Vianney Joseph FNP [Primary Care Provider, Nurse Practitioner] Patient Instructions: Urinary Tract Infection in Men (DC), Griffith Catheter Placement and Care (ED), Opioid Safety, Pain Management, Patient Portal & Marco A Instructions Activity Restrictions/Additional Instructions: Follow-up with your doctor as scheduled. Return for fever greater than 100 ?F despite 2-3 doses of antibiotics, worsening bleeding with clotting, worsening pain, any other concerning symptoms. Stop your previous antibiotic in favor of the antibiotic prescribed tonight. 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
[2024-11-13 22:43] VITALS: BP 138/76; PULSE 77; RESP 16; O2SAT 94
== END 2024-11-13 22:51 | disposition home or self-care (01) ==
PROVIDERS: Physician Assistant; Emergency Provider Emergency Medicine; PCP Nurse Practitioner
DX: T83.518A Infection and inflammatory reaction due to other urinary catheter, initial encounter (principal); X58.XXXA Exposure to other specified factors, initial encounter; Z79.82 Long term (current) use of aspirin; Z79.84 Long term (current) use of oral hypoglycemic drugs; Z87.891 Personal history of nicotine dependence; E11.9 Type 2 diabetes mellitus without complications; I10 Essential (primary) hypertension
CPT/HCPCS: 36415; 80053; 81001; 85025; 87086; 99283; J9999

== ENCOUNTER 2024-11-17 08:01 | Emergency (ER) | payer MEDICARE, SELFPAY ==
--- OUTSIDE RECORDS SUMMARY | 2024-08-27 12:00 | XMS_ITS ---
Author Organization [facility] Address [address] [place] [address] Care Team Providers Care Dinkey Operator Name Role Phone IVAN GUERRERO Unavailable [phone] REASON FOR VISIT 6 wks w/ fr/pvr/ipss Encounters Encounter Location Date Provider Diagnosis [facility] [address] [place] [address] 08/27/2024 IVAN GUERRERO Microscopic hematuri a R31.29 ; Benign prostatic hyperplasia with lower urinary tract symptoms N40.1 ; Family history of bladder cancer Z80.52 ; Urinary urgency R39.15 and Bilateral inguinal hernia, without obstruction or gangrene, not specified as recurrent K40.20 Assessments Encounter Date Diagnosis (ICD Code) Assessment Notes Treatment Notes Treatment Clinical Notes Section Notes 08/27/2024 Microscopic hematuria (ICD-10 - R31.29) 74-year-old male with medication-refra ctory BPH presenting with significant LUTS, particularly continuous urinary dribbling. 08/27/2024 Benign prostatic hyperplasia with lower urinary tract symptoms (ICD-10 - N40.1) 74-year-old male with medication-refra ctory BPH presenting with significant LUTS, particularly continuous urinary dribbling. 08/27/2024 Family history of bladder cancer (ICD-10 - Z80.52) 74-year-old male with medication-refra ctory BPH presenting with significant LUTS, particularly continuous urinary dribbling. 08/27/2024 Urinary urgency (ICD-10 - R39.15) 74-year-old male with medication-refra ctory BPH presenting with significant LUTS, particularly continuous urinary dribbling. 08/27/2024 Bilateral inguinal hernia, without obstruction or gangrene, not specified as recurrent (ICD-10 - K40.20) 74-year-old male with medication-refra ctory BPH presenting with significant LUTS, particularly continuous urinary dribbling. Plan Of Treatment No Information Progress Notes * Marco CONTE PDOB:[birth year] (74 yo M)Acc No.[id number]:08/27/2024 Progress Notes Patient: Marco RODRIGUEZ Provider: Duke GUERRERO MD :1950 A ge:74 Y S ex:Male Date:08/27/2024 Address:[facility] [address], [place], [id number] Subjective: * Chief Complaints: * 1 . 6 wks w/ fr/pvr/ipss. * HPI: M igrated HPI: Patient is a 74 y/o M who is here for further evaluation and treatment involving dribbling with urination and BPH. UA trace blood. PVR 0ml. IPSS 18 QOL 5. Notes frequency urgency, incontinence, leakage for a couple of years now. Denies gross hematuria. Notes family h/o of bladder cancer in father. Patient has trialed Flomax, finasteride, and tadalafil with no improvement. Previously saw Urology in [place]. CT on 06/11/24 thickened urinary bladder wall and prominent prostate but no well-defined mass lesions involving the bladder, ureters, or kidneys.There are cystic changes in the kidneys.Inguinal hernias bilaterally with prominent vessels and fat in these inguinal hernias with some nodular irregular changes involving the right inguinal hernia, and it raises question of previous repair.Degenerative changes of the spine are noted. Mild vascular disease is noted. Patient reports persistent urinary symptoms including continuous dribbling, both during and independent of urination. Previously tried Flomax and finasteride without significant improvement. Denies changes in urinary stream flow, which he reports has always been good. History of bilateral inguinal hernia repair in [place] approximately 2 years ago. Cysto on 07/16/24 reveals trilobar prostatic enlargement with median lobe involvement and evidence of chronic bladder outlet obstruction. Incidental findings of bilateral renal cysts and recurrent inguinal hernias. Here today for 6 week f/u with noninvasive urodynamics and IPSS. * Medical History: Objective: * Vitals: Assessment: * Assessment: 1. B enign prostatic hyperplasia with lower urinary tract symptoms - N40.1 (Primary) 2 . M icroscopic hematuria - R31.29 3 . F amily history of bladder cancer - Z80.52 4 . U rinary urgency - R39.15 5 . B ilateral inguinal hernia, without obstruction or gangrene, not specified as recurrent - K40.20 74-year-old male with medica tion-refractory BPH presenting with significant LUTS, particularly continuous urinary dribbling. Plan: * Treatment: * Billing Information: * Visit Code: * Procedure Codes: * Electronic signature of AUST IN MD YOLANDA on 11/17/2024 at 08:41 AM CDT Sign off status: Pending * Provider: Duke GUERRERO MD Date: 0 08/27/2024 Generated for Maureen wiley/Ana/Judiitting on: 0 11/17/2024 08:41 AM CDT
[2024-11-17 08:28] VITALS: BP 161/79; PULSE 122; RESP 18; TEMP 36.7; O2SAT 94; BMI 29.8
--- OUTSIDE RECORDS SUMMARY | 2024-11-17 08:41 | XMS_ITS | Patient Health Record ---
Author Organization [facility], [facility] Address [address] [place] [address] Care Team Providers Care Border Measurer Name Role Phone IVAN GARCIA Unavailable [phone] JAYFOZIA SEARS Unavailable [phone] Allergies Allergen (clinical drug ingredient) Drug/Non Drug Allergy documented on EMR Reaction Allergy Type Onset Date Status atorvastatin Atorvastatin Unknown Drug Allergy A ctive bupropion Bupropion Unknown Drug Allergy Active paroxetine Paroxetine Unknown Drug Allergy Activ e pramipexole Pramipexole Unknown Drug Allergy Act franchesca trazodone Trazodone Unknown Drug Allergy Active Results Component Value Reference Range Notes Urinalysis, Routine Reviewed date:07/16/2024 02:55:26 PM Interpretation: Performing Lab: Notes/Report: Urine-Color yellow Appearance clear Glucose - Bilirubin - Ketones - Specific [place] 1.020 Occult Blood - pH 6.0 Urine Protein - Urobilinogen,Semi-Qn - Nitrite, Urine - WBC Esterase - BUN Proc SC Reviewed date:07/06/2024 11:47:18 AM Interpretation: Performing Lab: Notes/Report: BUN 14 7-21 MG/DL Testing perform ed at: [facility] [address] [place] [address] CLIA ID [id number] Creat Proc SC Reviewed date:07/06/2024 11:47:18 AM Interpretation: Performing Lab: Notes/Report: Creat .72 .57-1.17 MG/DL Z-iqdpna-h-benzoquinone imine (NAPQI) is a metabolite of acetaminophen, [...] for falsely depressed results. Testing performed at: [address] [place] [id number] Abdomen, Pelvis w/ + w/o Contrast--[id number] Reviewed date:07/06/2024 11:44:50 AM Interpretation: Performing Lab: Notes/Report: See Below For Report CT Abdomen, Pelvis w/ + w/o Contrast Read See Below For Report Urinalysis, Routine Reviewed date:06/11/2024 03:55:01 PM Interpretation: Performing Lab: Notes/Report: Urine-Color yellow Appearance cleart Glucose - Bilirubin - Ketones - Specific [place] 1.025 Occult Blood trace pH 6.0 Urine Protein - Urobilinogen,Semi-Qn - Nitrite, Urine - WBC Esterase - Urinalysis Gross Exam - Reason For Referral No Information Medications [...] tract symptoms due to benign prostatic hypertrophy (41056470688108) Benign prostatic hyperplasia with lower urinary tract symptoms (N40.1) Active confirmed Problem Benign prostatic hyperplasia (720747496) BPH (benign prostatic hyperplasia) (N40.0) Active confirmed Problem Family history of bladder cancer (927841083) Family history of bladder cancer (Z80.52) Active confirmed Problem Urgent desire to urinate (81365880) Urinary urgency (R39.15) Active confirmed Problem Microscopic hematuria (854315549) Microscopic hematuria (R31.29) Active confirmed Vital Signs Height-cm 167.64 cm 07/16/2024 Weight-kg 86.18 kg 07/16/2024 Height 66 in 07/16/2024 Weight 190 lbs 07/16/2024 BMI 30.66 kg/m2 07/16/2024 Procedures Procedure Date Ordered Date Performed Result Body Sit e Bladder Scan 06/11/2024 06/11/2024 PVR 0ML Encounters Encounter Location Date Provider Diagnosis [facility] [address] [place] [address] 08/27/2024 IVAN GARCIA Microscopic hematuri a R31.29 ; Benign prostatic hyperplasia with lower urinary tract symptoms N40.1 ; Family history of bladder cancer Z80.52 ; Urinary urgency R39.15 and Bilateral inguinal hernia, without obstruction or gangrene, not specified as recurrent K40.20 [facility] [address] [place] [address] 06/11/2024 IVAN GARCIA BPH (benign prostati c hyperplasia) N40.0 ; Microscopic hematuria R31.29 ; Family history of bladder cancer Z80.52 and Urinary urgency R39.15 [facility] [address] [place] [address] 07/16/2024 IVAN GARCIA Microscopic hematuri a R31.29 ; Benign prostatic hyperplasia with lower urinary tract symptoms N40.1 ; Family history of bladder cancer Z80.52 and Urinary urgency R39.15 [facility] [address] [place] [address] 11/21/2023 FOZIA JAY Assessments Encounter Date Diagnosis [...] End Date [employer] Medicare Replacement [address] [address] [place], [place] [id number] Marco Conte Self - patient is the insured Medical (General) History Medical History History ICD Code diabetes dyslipidemia osteoarthritis depression high blood pressure ED Incontinence nocturia Surgical History Surgery Date(Month/Year) nasal surgery appenectomy R & L total knee R & L hernias left cataract removal 07/14/2024 Hospitalization History Reason Date(Month/Year) see surgical hist.
--- OUTSIDE RECORDS SUMMARY | 2024-11-17 08:42 | XMS_ITS | Clinical Summary ---
Author Organization [facility] Address [address] Attn: Epic Prelude ADT [place] [address] Care Team Providers Care Earth Observations Chief Scientist Name Role Phone Unavailable Primary Care Provider Unavailabl e Encounters Date Type Department Care Team Description 11/03/2024 External Device Data [facility]STRACTION Provider, Abstract 10/20/2024 External Device Data [facility] Provider, Abstract 08/19/2024 External Device Data [facility] Provider, Abstract 2024 External Device Data [facility] Provider, Abstract 2024 External Device Data [facility]STRACTION Provider, Abstract 08/17/2024 Orders Only [facility] [address] [address] Provider, Abstract from Last 3 Months Social History Tobacco [...]
--- NOTE | 2024-11-17 08:44 | ED_ITS ---
HPI - Male Genitourinary 2 General: Chief complaint: Urogenital-Male Stated complaint: Groin pain Time Seen by Provider: 11/17/24 08:18 History of Present Illness: 74-year-old male presents to the emergen cy room complaint of difficulty with urination. Patient had a TURP procedure done 1 week ago overnight he has not been able to urinate. He does still have a Griffith in place that he was discharged with. States the drainage from the Griffith has become slower and slower. Patient was seen 2 days ago and found to have a cystitis was started on oral antibiotics. He denies fever at home. Patient was discharged home on cefdinir. Culture from November 13 had no growth at 36 hours Associated symptoms: Reports nausea; Deny dysuria Related Data Home Medications ?Medication ?Instructions ?Recorded ?Confirmed calcium citrate 200 mg PO DAILY 11/11/23 magnesium glycinate 100 mg PO QPM 11/11/2311/17 azelastine 137 mcg (0.1 %) nasal 2 spray intranasal BI D PRN 11/17/24 11/17/24 spray allergies hydrocodone 5 mg-acetaminophen 325 1 tab PO BID PRN Pa in 11/17/24 11/17/24 mg tablet lisinopril 5 mg tablet 5 mg PO DAILY 11/17/2411/17 metformin 1,000 mg tablet 1,000 mg PO BID 11/17/24 metronidazole 0.75 % topical cream 1 applic topical BI D PRN rozacea 11/17/24 11/17/24 (MetroCream) rosuvastatin 5 mg tablet 5 mg PO DAILY 11/17/2411/17 timolol maleate 0.5 % eye drops 1 drp ophthalmic (eye) DAILY 11/17/24 11/17/24 triamcinolone acetonide 0.1 % 1 applic topical BID PRN Skin 11/17/24 11/17/24 topical cream Irritation Previous Rx's ?Medication ?Instructions ?Recorded C-pap machine APAP 8-15 #1 ea 05/21/24 aspirin 81 mg tablet,delayed 81 mg PO DAILY #30 tabs 0 08/04/24 release (Adult Aspirin Regimen) citalopram 20 mg tablet 20 mg PO DAILY 90 days #90 t abs 08/27/24 propranolol 10 mg tablet 10 mg PO BID #60 tabs methylphenidate HCl 10 mg tablet 10 mg PO TID 30 days #90 tabs 10/07/24 galantamine 4 mg tablet 4 mg PO BID #60 tabs 5 cefdinir 300 mg capsule 300 mg PO BID 10 days #20 ca ps 11/13/24 Allergies Allergy/AdvReac Type Severity Reaction Status Date / Time atorvastatin Allergy Unknown Verified 11/13/24 18:56 bupropion Allergy Unknown Verified 11/13/24 18:57 paroxetine Allergy Unknown Verified 11/13/24 18:56 pramipexole Allergy Unknown Verified 11/13/24 18:57 Sulfa (Sulfonamide Allergy unknown Verified 11/03/24 13:31 Antibiotics) trazodone Allergy Unknown Verified 11/13/24 18:57 Review of Systems 2 Const: Denies: fever(s) or chills Card: Denies: chest pain Resp: Denies: dyspnea GI: Reports: abdominal pain and nausea : Reports: difficulty urinating and difficulty starting urination; Denies: dysuria, urinary frequency or urinary urgency Musc: Denies: neck pain or back pain Skin/Breast: Denies: rash PFSH ED 2 PFSH: Medical History JORI on CPAP Hypertension Rotator cuff tear, right Primary osteoarthritis, 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 Surgeon: Xenia Braun MD Family History Father Diabetes Sister Diabetes Mother Stroke Social History Smoking and tobacco/nicotine status: former use of tobacco/nicotine (quit 1977) Physical Exam 2 Const: COMMON NORMALS: no acute distress GENERAL APPEARANCE: cooperative and comfortable ORIENTATION/CONSCIOUSNESS: Yes awake, Yes oriented to person, Yes oriented to place and Yes oriented to time HENMT: COMMON NORMALS: normocephalic, atraumatic and hearing grossly normal bilaterally HEAD & SCALP: normocephalic and atraumatic Resp: COMMON NORMALS: normal respiratory effort, No retractions, No use of accessory muscles and clear to auscultation bilaterally AUSCULTATION: clear to auscultation bilaterally Cardio: COMMON NORMALS: regular rate, regular rhythm and No murmurs present (Cardio) RATE: regular rate RHYTHM: regular rhythm GI: COMMON NORMALS: No hepatosplenomegaly present AUSCULTATION: Yes normoactive bowel sounds PALPATION: Yes Tenderness to palpation present (GI), No Guarding due to palpation present (GI) and Yes No hepatosplenomegaly present OTHER: Bladder palpable at the umbilicus Extremity: COMMON NORMALS: normal to inspection, capillary refill normal, no clubbing, cyanosis or edema, no calf tenderness and no pedal edema Neuro: SENSORIUM/ORIENTATION: Yes oriented to person, Yes oriented to place and Yes oriented to time Skin: COMMON NORMALS: no rashes or lesions noted GENERAL SKIN EXAM: no rashes or lesions noted Course 2 Vital Signs: Vital signs: Vital Signs Temperature 98.1 F 11/17/24 08:28 Pulse Rate 90 11/17/24 11:29 Respiratory Rate 18 11/17/24 08:28 Blood Pressure 123/64 11/17/24 11:29 Pulse Oximetry 92 11/17/24 11:29 Oxygen Delivery Me thod Room Air 11/17/24 08:28 MDM - Male Medical Decision Making Catheter irrigated able to drain nearly 500 mL including several large clots that appear old. Patient has complete resolution of symptoms discharge home and follow-up with urology as previously planned. Continue antibiotics previously prescribed. Lab Data 11/17/24 09:05 11/17/24 09:05 Laboratory Results WBC 10.45 10^3/uL (3.29-11.43) 11/17/24 09:05 RBC 4.41 10^6/uL (3.85-5.65) 11/17/24 09:05 Hgb 13.30 g/dL (11.27-16.99) 11/17/24 09:05 Hct 39.4 % (37-53) 11/17/24 09:05 MCV 89.3 fl (82-101) 11/17/24 09:05 MCH 30.2 pg (27-33) 11/17/24 09:05 MCHC 33.8 g/dL (30-55) 11/17/24 09:05 RDW 12.3 % (12.1-15.1) 11/17/24 09:05 Plt Count 243 10^3/cmm (157-399) 11/17/24 09:05 MPV 9.1 fL (7.4-10.4) 11/17/24 09:05 Neut % (Auto) 77.2 % 11/17/24 09:05 Lymph % (Auto) 11.0 % 11/17/24 09:05 [place] % (Auto) 7.4 % 11/17/24 09:05 Eos % (Auto) 3.3 % 11/17/24 09:05 Baso % (Auto) 0.5 % 11/17/24 09:05 Neut # (Auto) 8.08 10^3/uL (1.8-7.7) H 11/17/24 09:05 Lymph # (Auto) 1.2 10^3/uL (0.8-4.8) 11/17/24 09:05 [place] # (Auto) 0.8 10^3/uL (0.2-0.9) 11/17/24 09:05 Eos # (Auto) 0.3 10^3/uL (0.0-0.8) 11/17/24 09:05 Baso # (Auto) 0.1 10^3/uL (0.0-0.1) 11/17/24 09:05 Nucleated RBC % (auto) 0 % 11/17/24 09:05 Nucleated RBCs # 0.0 /100WBC 11/17/24 09:05 Sodium 135 mmol/L (136-145) L 11/17/24 09:05 Potassium 4.1 mmol/L (3.5-5.1) 11/17/24 09:05 Chloride 99 mmol/L (98-107) 11/17/24 09:05 Carbon Dioxide 21 mmol/L (22-29) L 11/17/24 09:05 Anion Gap 19.1 (5-19) H 11/17/24 09:05 BUN 17 mg/dL (8-23) 11/17/24 09:05 Creatinine 0.9 mg/dL (0.7-1.2) 11/17/24 09:05 GFR Calculation Not Reportable 11/17/24 09:05 Glucose 261 mg/dL (65-115) H 11/17/24 09:05 Calculated Osmolality 291 mOsm/kg (285-295) 11/17/24 09:05 Calcium 9.4 mg/dL (8.5-10.5) 11/17/24 09:05 Total Bilirubin 0.6 mg/dL (0.15-1.2) 11/17/24 09:05 AST 18 U/L (0-40) 11/17/24 09:05 ALT 19 U/L (0-41) 11/17/24 09:05 Alkaline Phosphatase 126 U/L (40-130) 11/17/24 09:05 Total Protein 7.4 g/dL (6.6-8.7) 11/17/24 09:05 Albumin 4.5 g/dL (3.5-5.2) 11/17/24 09:05 Globulin 2.9 g/dL (1.3-4.6) 11/17/24 09:05 Urine Color Somis (Yellow) A 11/17/24 10:26 Urine Appearance Turbid (CLEAR) A 11/17/24 10:26 Urine pH 5.0 (5-7) 11/17/24 10:26 Ur Specific [place] 1.016 (1.005-1.030) 11/17/24 10:26 Urine Protein 2+ (Negative) A 11/17/24 10:26 Urine Glucose (UA) 3+ (Normal) H 11/17/24 10:26 Urine Ketones 1+ (Negative) H 11/17/24 10:26 Urine Blood 3+ (Negative) A 11/17/24 10:26 Urine Nitrate Negative (Negative) 11/17/24 10:26 Urine Bilirubin Negative (Negative) 11/17/24 10:26 Urine Urobilinogen 1.0 mg/dL (Negative) 11/17/24 10:26 Ur Leukocyte Esterase 2+ (Negative) A 11/17/24 10:26 Urine RBC 51-100 /hpf (0-2) H 11/17/24 10:26 Urine WBC 11-20 /hpf (0-5) H 11/17/24 10:26 Ur Squamous Epith Cells 6-10 /hpf (0-5) 11/17/24 10:26 Amorphous Sediment Not Reportable 11/17/24 10:26 Urine Bacteria None seen /hpf (NONE) 11/17/24 10:26 Hyaline Casts 2.05 /lpf 11/17/24 10:26 All radiology interpretation(s) finalized by discharge Discharge Plan Discharge Patient Disposition: Home Clinical Impression: Complication, blocked Griffith catheter, S/P transurethral resection of prostate Condition: Stable Prescriptions: No Action citalopram 20 mg tablet 20 mg PO DAILY 90 Days Qty: 90 2RF aspirin [Adult Aspirin Regimen] 81 mg tablet,delayed release (DR/EC) 81 mg PO DAILY Qty: 30 0RF propranolol 10 mg tablet 10 mg PO BID Qty: 60 11RF (DME) C-pap machine APAP 8-15 See Rx Instructions .Route .MEDSUPPLY Qty: 1 0RF Rx Instructions: provide mask and supplies as needed. calcium citrate 200 mg (950 mg) tablet 200 mg PO DAILY magnesium glycinate 100 mg magnesium capsule 100 mg PO QPM methylphenidate HCl 10 mg tablet 10 mg PO TID 30 Days Qty: 90 0RF galantamine 4 mg tablet 4 mg PO BID Qty: 60 3RF Rx Instructions: administer with AM and PM meals cefdinir 300 mg capsule 300 mg PO BID 10 Days Qty: 20 0RF hydrocodone-acetaminophen 5-325 mg tablet 1 tab PO BID PRN (Reason: Pain) timolol maleate 0.5 % drops 1 drp ophthalmic (eye) DAILY triamcinolone acetonide 0.1 % cream 1 applic topical BID PRN (Reason: Skin Irritation) metformin 1,000 mg tablet 1,000 mg PO BID metronidazole [MetroCream] 0.75 % cream 1 applic topical BID PRN (Reason: rozacea) lisinopril 5 mg tablet 5 mg PO DAILY azelastine 137 mcg (0.1 %) spray,non-aerosol 2 spray intranasal BID PRN (Reason: allergies) Rx Instructions: administer into each nostril rosuvastatin 5 mg tablet 5 mg PO DAILY Discharge Orders: Discharge ED (Routine); Ordered 11/17/24 Ordered By: Adrián Anthony Referrals: Vianney Joseph FNP [Primary Care Provider, Nurse Practitioner] Discharge Diet: Usual diet Discharge Activity: Increase activity as tolerated Patient Instructions: Opioid Safety, Pain Management, Patient Portal & Marco A Instructions Activity Restrictions/Additional Instructions: Thank you for choosing [facility] for your healthcare needs today. It is very important that you follow up as instructed or that you return to the Emergency Department should you have concerns or if your condition changes or worsens in any way. Emergency department visits are focused on emergent conditions, in some cases you may require further evaluation on an outpatient basis. You were seen in the emergency room was complaints of difficulty with your catheter. Found that your catheter was partially blocked by clots these were irrigated out. On initial evaluation you had nearly 500 mL in your bladder after irrigation of the catheter we able to get it drained completely. Continue the antibiotic you were given previously and follow-up with your urologist as planned return if you have further difficulties with drainage from the catheter. (Please note that included in your discharge packet is information concerning opioid safety and pain management. This information is given to all patients were discharged from the ER regardless of their discharge diagnosis or the medicines they usually take or are prescribed.) Print Language: Citizen Of [place] Coding Level of Care Code ED Hoop Maker Helper Machine for Cheikh Christian
--- NOTE | 2024-11-17 08:56 | ECG_ITS ---
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 Measurements Intervals [place] Rate: 113 P: 28 LA: 178 QRS: 38 QRSD: 98 T: -2 QT: 333 QTc: 458 Interpretive Statements SINUS TACHYCARDIA POSSIBLE LEFT ATRIAL ENLARGEMENT [-0.1mV P-WAVE IN V1/V2] POSSIBLE LATERAL MYOCARDIAL INFARCTION , PROBABLY OLD [30 ms Q WAVE IN I/aVL/V5/V6] ABNORMAL RHYTHM ECG Compared to ECG 07/27/2024 22:43:44 Myocardial infarct finding now present Sinus rhythm no longer present Electronically Signed On 11-17-2024 17:50:08 CDT by Charles Brower M.D. [email or web address] [id number]
[2024-11-17 09:20] LABS: Hematocrit 39.4 % (37-53); Hemoglobin 13.30 g/dL (11.27-16.99); Mean Corpuscular HGB Conc 33.8 g/dL (30-55); Mean Corpuscular Hemoglobin 30.2 pg (27-33); Mean Corpuscular Volume 89.3 fl (82-101); Nucleated Red Blood Cells % 0 %; Platelet Count 243 10^3/cmm (157-399); Red Blood Count 4.41 10^6/uL (3.85-5.65); White Blood Count 10.45 10^3/uL (3.29-11.43)
[2024-11-17 09:40] LABS: Alanine Aminotransferase 19 U/L (0-41); Albumin Level 4.5 g/dL (3.5-5.2); Alkaline Phosphatase 126 U/L (40-130); Anion Gap 19.1 (5-19); Aspartate Amino Transferase 18 U/L (0-40); Blood Urea Nitrogen 17 mg/dL (8-23); Calcium 9.4 mg/dL (8.5-10.5); Carbon Dioxide 21 mmol/L (22-29); Chloride 99 mmol/L (98-107); Creatinine Clr Calc Pharmacy 73.1765; Globulin 2.9 g/dL (1.3-4.6); Glucose 261 mg/dL (65-115); Osmolality Calculated 291 mOsm/kg (285-295); Potassium 4.1 mmol/L (3.5-5.1); Sodium 135 mmol/L (136-145); Total Protein 7.4 g/dL (6.6-8.7)
[2024-11-17 10:55] VITALS: BP 127/72; PULSE 96; O2SAT 93
[2024-11-17 10:56] LABS: Glucose Urine UA 3+ (Normal); Nitrate Urine Negative (Negative); Specific Gravity, Urine 1.016 (1.005-1.030)
[2024-11-17 10:59] LABS: Add Urine Microscopic? YES
[2024-11-17 11:22] LABS: UA Slide Review UA Slide Review Perf
[2024-11-17 11:29] VITALS: BP 123/64; PULSE 90; O2SAT 92
== END 2024-11-17 11:32 | disposition home or self-care (01) ==
PROVIDERS: Emergency Provider Family Medicine; PCP Nurse Practitioner
DX: T83.091A Other mechanical complication of indwelling urethral catheter, initial encounter (principal); Z98.890 Other specified postprocedural states; Z79.84 Long term (current) use of oral hypoglycemic drugs; Z79.82 Long term (current) use of aspirin; F17.290 Nicotine dependence, other tobacco product, uncomplicated; E11.9 Type 2 diabetes mellitus without complications; I10 Essential (primary) hypertension; X58.XXXA Exposure to other specified factors, initial encounter
CPT/HCPCS: 36415; 51798; 80053; 81001; 85025; 93005; 99284

== ENCOUNTER 2024-11-23 10:26 | Outpatient (CLI) | payer MEDICARE, SELFPAY ==
--- NOTE | 2024-11-23 11:00 | MR_ITS ---
WS: [id number] MRI BRAIN WITHOUT CONTRAST HISTORY: G25.0 - Essential tremor COMPARISON: Head CT 07/27/2024 TECHNIQUE: Diffusion imaging, multiplanar T1, T2 and FLAIR imaging obtained. No evidence for acute infarct or hemorrhage. Santos-white matter differentiation is normal. No prior infarcts. Mild symmetric volume loss and mild small vessel changes in the subcortical white matter. No lacunar infarct. Ventricles and extra-axial spaces are normal. No inferior displacement of cerebellar tonsils. The sella turcica and pituitary gland are unremarkable. Dural venous sinuses and [place] of [place] demonstrate no abnormality on this unenhanced studies. Paranasal sinuses: Clear. Mastoid air cells: Normal. Calvarium and scalp: Intact. MR/MR head wo con* [id number] IMPRESSION: 1. Normal diffusion imaging. No acute infarct. 2. Mild cerebral volume loss and small vessel disease. No prior large territor y infarct. 3. No intracranial hemorrhage.
== END 2024-11-23 10:27 | disposition home or self-care (01) ==
LOC: RAD 10:31
PROVIDERS: PCP Family Medicine; Visit Provider Specialist
DX: G25.0 Essential tremor (principal); G31.84 Mild cognitive impairment of uncertain or unknown etiology
CPT/HCPCS: 70551

== ENCOUNTER → 2024-11-24 09:03 | Outpatient (BNVA) | payer MEDICARE, SELFPAY | PROVIDERS: PCP Family Medicine; Referring Provider Specialist; Visit Provider Specialist | DX: R40.4 Transient alteration of awareness (principal); G47.419 Narcolepsy without cataplexy; G45.9 Transient cerebral ischemic attack, unspecified; G31.84 Mild cognitive impairment of uncertain or unknown etiology; G25.0 Essential tremor; G20.C Parkinsonism, unspecified | CPT/HCPCS: 95816; 95819 ==

== ENCOUNTER → 2025-01-06 12:28 | Outpatient (BNVA) | payer MEDICARE, SELFPAY | PROVIDERS: PCP Family Medicine; Referring Provider Nurse Practitioner; Visit Provider Specialist | DX: G20.A1 Parkinson's disease without dyskinesia, without mention of fluctuations (principal); G31.83 Neurocognitive disorder with Lewy bodies; F02.80 Dementia in other diseases classified elsewhere, unspecified severity, without behavioral disturbance, psychotic disturbance, mood disturbance, and anxiety | CPT/HCPCS: 99214 ==